=== PATIENT | male | born 1965 | race Caucasian/White ===

== ENCOUNTER 2020-10-31 10:06 | Observation (INO) ==
[2020-10-31 10:37] LABS: Basophils % 0.5 %; Eosinophils # 0.1 K/mcL (0.0-0.6); Eosinophils % 1.7 %; Hematocrit 49.5 % (37.5-50.1); Hemoglobin 15.3 g/dL (12.9-16.9); Immature Granulocytes % 0.1 % (0-4); Lymphocytes # 2.2 K/mcL (0.6-4.6); Lymphocytes % 27.8 %; Mean Corpuscular HGB Conc 30.9 g/dL (31.6-35.5); Mean Corpuscular Hemoglobin 31.5 pg (28.0-33.3); Mean Corpuscular Volume 102.1 fL (83.0-100.0); Mean Platelet Volume 9.8 fL (9.4-12.4); Monocytes # 0.7 K/mcL (0.0-1.3); Monocytes % 8.7 %; Neutrophils # 4.8 K/mcL (1.6-8.9); Platelet Count 180 K/mcL (140-400); Red Blood Count 4.85 M/mcL (4.19-5.50); Red Cell Distribution Width 13.9 % (11.5-14.5); Segmented Neutrophils % 61.2 %; White Blood Count 7.9 K/mcL (4.3-11.1)
[2020-10-31 10:54] LABS: BUN/Creatinine Ratio 37 (6-26); Blood Urea Nitrogen 123 mg/dL (6-20); Calcium 10.5 mg/dL (8.6-10.3); Carbon Dioxide 35 mEq/L (23-29); Chloride 96 mEq/L (98-107); Glucose 105 mg/dL (70-105); Osmolality,Calculated 334 (280-300); Potassium 4.3 mEq/L (3.5-5.1); Sodium 142 mEq/L (136-145); eGFR For African Americans 23 (> 60); eGFR For Non-African Americans 19 (> 60)
[2020-10-31 11:18] LABS: Troponin I < 0.03 ng/mL (< 0.04)
[2020-10-31] MEDS ORDERED: Ondansetron 4 MG/2 ML VIAL IVP PRN (13:55)
[2020-10-31] MEDS ORDERED: Naloxone 0.4 MG/ML INJ IVP PRN (13:55)
[2020-10-31] MEDS ORDERED: D5% in Water 1,000 ML IVC PRN (13:57)
[2020-10-31] MEDS ORDERED: Dextrose Gel 15 GM/37.5 ML TUBE PO PRN ×2 (13:57)
[2020-10-31] MEDS ORDERED: *HR* Dextrose 50 % in Water (Vial) 50 ML VIAL IVP PRN (13:57)
[2020-10-31] MEDS ORDERED: Perflutren Lipid Microsphere 1.3 ML in 0.9 % Sodium Chloride 8.7 ML IVP PRN (14:00)
[2020-10-31] MEDS ORDERED: Furosemide 40 MG/4 ML VIAL IVP SCH (15:45)
[2020-10-31] MEDS: Insulin LISPRO 300 UNITS/3 ML VIAL SUBQ SCH (17:22)
[2020-10-31] MEDS: Albumin 25% 25gram/100mL 25 GM/100 ML IV.SOLN IVPB SCH ×2 (17:46→23:45)
[2020-10-31] MEDS: *HR* Heparin 5,000 UNIT/ML VIAL SQ SCH (17:47)
[2020-10-31 17:54] LABS: Estimated Average Glucose 154 mg/dl
[2020-10-31] MEDS ORDERED: Insulin LISPRO 300 UNITS/3 ML VIAL SUBQ SCH (21:00)
[2020-10-31] MEDS ORDERED: Bismuth Subsalicylate 120 ML ORAL SUSPENSION PO ONE (23:06)
[2020-11-01] MEDS: *HR* Heparin 5,000 UNIT/ML VIAL SQ SCH (05:34)
[2020-11-01 06:55] VITALS: BP 146/81
[2020-11-01 08:11] LABS: Basophils % 0.4 %; Eosinophils # 0.1 K/mcL (0.0-0.6); Eosinophils % 2.4 %; Hematocrit 43.7 % (37.5-50.1); Immature Granulocytes % 0.2 % (0-4); Lymphocytes # 1.5 K/mcL (0.6-4.6); Lymphocytes % 28.9 %; Mean Corpuscular HGB Conc 30.4 g/dL (31.6-35.5); Mean Corpuscular Hemoglobin 30.6 pg (28.0-33.3); Mean Corpuscular Volume 100.7 fL (83.0-100.0); Mean Platelet Volume 9.5 fL (9.4-12.4); Monocytes # 0.6 K/mcL (0.0-1.3); Monocytes % 12.7 %; Neutrophils # 2.8 K/mcL (1.6-8.9); Platelet Count 134 K/mcL (140-400); Red Blood Count 4.34 M/mcL (4.19-5.50); Red Cell Distribution Width 13.8 % (11.5-14.5); Segmented Neutrophils % 55.4 %; White Blood Count 5.1 K/mcL (4.3-11.1)
[2020-11-01 08:14] LABS: Hemoglobin 13.3 g/dL (12.9-16.9)
[2020-11-01 08:27] LABS: Calcium 10.4 mg/dL (8.6-10.3); Magnesium 2.1 mg/dL (1.6-2.6); Phosphorous 4.6 mg/dL (2.7-4.5); Potassium 3.9 mEq/L (3.5-5.1)
[2020-11-01] MEDS ORDERED: Aspirin Enteric Coated 81 MG Tablet PO SCH (09:00)
[2020-11-01] MEDS: Insulin LISPRO 300 UNITS/3 ML VIAL SUBQ SCH ×2 (09:12→12:43)
[2020-11-01] MEDS ORDERED: *HR* OxyCODONE/APAP 10/325 TABLET PO PRN (09:18)
[2020-11-01] MEDS: Albumin 25% 25gram/100mL 25 GM/100 ML IV.SOLN IVPB SCH (09:21)
[2020-11-01] MEDS ORDERED: Furosemide 40 MG/4 ML VIAL IVP SCH (09:30)
== END 2020-11-01 13:30 | disposition home or self-care (01) ==
LOC: 3ANU 10:06 → EMEROOARM 10:06 → 3ANU 14:57
PROVIDERS: ADMIT Internal Medicine; ATTEND Internal Medicine

== ENCOUNTER 2020-12-15 13:27 | Inpatient (IN) ==
[2020-12-15] MEDS ORDERED: Naloxone 0.4 MG/ML INJ IVP PRN (16:35)
[2020-12-15] MEDS ORDERED: Ondansetron ODT 4 MG TAB.RAPDIS SL PRN (16:52)
[2020-12-15] MEDS: Pantoprazole 40 MG VIAL IVP SCH (17:27)
[2020-12-15] MEDS: 0.9 % Sodium Chloride 1,000 ML IVC SCH (17:37)
[2020-12-16] MEDS: Pantoprazole 40 MG VIAL IVP SCH ×2 (05:43→18:37)
[2020-12-16 06:10] LABS: INR 2.4; Prothrombin Time 26.6 Seconds (9.4-12.1)
[2020-12-16 06:12] LABS: Basophils % 0.2 %; Eosinophils % 0.3 %; Hematocrit 41.5 % (37.5-50.1); Hemoglobin 12.9 g/dL (12.9-16.9); Immature Granulocytes % 0.6 % (0-4); Lymphocytes # 0.9 K/mcL (0.6-4.6); Lymphocytes % 9.2 %; Mean Corpuscular HGB Conc 31.1 g/dL (31.6-35.5); Mean Corpuscular Hemoglobin 31.5 pg (28.0-33.3); Mean Corpuscular Volume 101.2 fL (83.0-100.0); Mean Platelet Volume 9.8 fL (9.4-12.4); Monocytes # 1.6 K/mcL (0.0-1.3); Monocytes % 15.7 %; Neutrophils # 7.3 K/mcL (1.6-8.9); Platelet Count 215 K/mcL (140-400); Red Cell Distribution Width 14.7 % (11.5-14.5); White Blood Count 9.9 K/mcL (4.3-11.1)
[2020-12-16 06:26] LABS: Albumin 3.6 g/dL (3.5-5.7); Bilirubin,Total 1.2 mg/dL (0.3-1.0); Calcium 9.8 mg/dL (8.6-10.3); Globulin 3.5 g/dL (2.4-3.5); Magnesium 1.8 mg/dL (1.6-2.6); Phosphorous 2.6 mg/dL (2.7-4.5); Total Protein 7.1 g/dL (6.4-8.9)
[2020-12-16] MEDS ORDERED: 0.9 % Sodium Chloride 1,000 ML IVC SCH (08:45)
[2020-12-16] MEDS: Metoprolol XL (24 HR) Succ 25 MG TAB.ER.24H PO SCH ×2 (10:18→20:05)
[2020-12-16] MEDS ORDERED: Fluticasone Propionate Nasal 50 MCG/SPRAY BOTTLE NS PRN (12:44)
[2020-12-16] MEDS ORDERED: Nystatin Cream 15 GM TUBE TP PRN (12:44)
[2020-12-16] MEDS ORDERED: D5% in Water 1,000 ML IVC PRN (15:32)
[2020-12-16] MEDS ORDERED: *HR* Dextrose 50 % in Water (Vial) 50 ML VIAL IVP PRN (15:32)
[2020-12-16] MEDS ORDERED: Dextrose Gel 15 GM/37.5 ML TUBE PO PRN ×2 (15:32)
[2020-12-16] MEDS ORDERED: 0.9 % Sodium Chloride 250 ML IVC ONE (15:53)
[2020-12-16] MEDS ORDERED: Acetaminophen 325 MG TABLET PO ONE (15:55)
[2020-12-16] MEDS: Insulin LISPRO 300 UNITS/3 ML VIAL SUBQ SCH (16:38)
[2020-12-16] MEDS ORDERED: Warfarin perPT PO PRN (18:00)
[2020-12-16] MEDS: Latanoprost 2.5 ML BOTTLE BOTH EYES SCH (20:12)
[2020-12-17] MEDS: Pantoprazole 40 MG VIAL IVP SCH (05:58)
[2020-12-17 05:59] LABS: Basophils % 0.3 %; Eosinophils # 0.1 K/mcL (0.0-0.6); Eosinophils % 0.8 %; Hematocrit 38.7 % (37.5-50.1); Hemoglobin 12.1 g/dL (12.9-16.9); Immature Granulocytes % 0.3 % (0-4); Lymphocytes # 0.8 K/mcL (0.6-4.6); Lymphocytes % 9.2 %; Mean Corpuscular HGB Conc 31.3 g/dL (31.6-35.5); Mean Corpuscular Hemoglobin 31.5 pg (28.0-33.3); Mean Corpuscular Volume 100.8 fL (83.0-100.0); Mean Platelet Volume 9.6 fL (9.4-12.4); Monocytes % 11.3 %; Neutrophils # 6.8 K/mcL (1.6-8.9); Platelet Count 198 K/mcL (140-400); Red Blood Count 3.84 M/mcL (4.19-5.50); Red Cell Distribution Width 14.9 % (11.5-14.5); Segmented Neutrophils % 78.1 %; White Blood Count 8.7 K/mcL (4.3-11.1)
[2020-12-17 06:06] LABS: INR 1.8; Prothrombin Time 20.7 Seconds (9.4-12.1)
[2020-12-17 06:21] LABS: Albumin 3.4 g/dL (3.5-5.7); Albumin/Globulin Ratio 0.9 (1.1-2.2); Calcium 9.3 mg/dL (8.6-10.3); Globulin 3.6 g/dL (2.4-3.5); Potassium 3.8 mEq/L (3.5-5.1)
[2020-12-17] MEDS: 0.9 % Sodium Chloride 1,000 ML IVC SCH (06:49)
[2020-12-17] MEDS: Insulin LISPRO 300 UNITS/3 ML VIAL SUBQ SCH ×3 (07:09→16:33)
[2020-12-17] MEDS: Loratadine 10 MG TABLET PO SCH (07:14)
[2020-12-17] MEDS: Furosemide 40 MG TABLET PO SCH (07:14)
[2020-12-17] MEDS: Metoprolol XL (24 HR) Succ 25 MG TAB.ER.24H PO SCH ×2 (07:14→19:44)
[2020-12-17] MEDS ORDERED: *HR* Succinylcholine 200 MG/10 ML VIAL IVP ONE (07:56)
[2020-12-17] MEDS ORDERED: Lidocaine -MPF 2% 2 ML VIAL ONE ×2 (07:57→08:04)
[2020-12-17] MEDS ORDERED: *HR* Propofol 200 MG/20 ML VIAL IVP ONE (07:59)
[2020-12-17] MEDS ORDERED: Ketamine *HR* 500 MG/10 ML MDV ONE (08:11)
[2020-12-17] MEDS ORDERED: Tetracaine/Benzocaine/Butamben 1 SPRAY AEROSOL MM ONE (08:13)
[2020-12-17] MEDS ORDERED: *HR* Metoprolol 5 MG/5 ML VIAL IVP ONE (08:33)
[2020-12-17] MEDS: Pantoprazole 40 MG in 0.9 % Sodium Chloride Mini Bag 100 ML IVC SCH ×4 (09:21→23:58)
[2020-12-17] MEDS: Sucralfate 1 GM TABLET PO SCH ×3 (12:11→19:52)
[2020-12-17] MEDS: DilTIAZem 50 MG/50 ML IV.SOLN IVC SCH ×2 (13:55→18:57)
[2020-12-17] MEDS ORDERED: *HR* Warfarin 5 MG TABLET PO ONE (18:00)
[2020-12-17] MEDS ORDERED: Warfarin perPT PO PRN (18:00)
[2020-12-17] MEDS: Latanoprost 2.5 ML BOTTLE BOTH EYES SCH (19:52)
[2020-12-18] MEDS: Pantoprazole 40 MG in 0.9 % Sodium Chloride Mini Bag 100 ML IVC SCH (04:49)
[2020-12-18] MEDS: DilTIAZem 50 MG/50 ML IV.SOLN IVC SCH (04:51)
[2020-12-18 06:12] LABS: INR 1.6; Prothrombin Time 18.7 Seconds (9.4-12.1)
[2020-12-18 06:20] LABS: Hematocrit 40.2 % (37.5-50.1); Hemoglobin 12.4 g/dL (12.9-16.9); Mean Corpuscular HGB Conc 30.8 g/dL (31.6-35.5); Mean Corpuscular Hemoglobin 31.5 pg (28.0-33.3); Mean Platelet Volume 9.7 fL (9.4-12.4); Platelet Count 218 K/mcL (140-400); Red Blood Count 3.94 M/mcL (4.19-5.50); Red Cell Distribution Width 14.7 % (11.5-14.5); White Blood Count 7.2 K/mcL (4.3-11.1)
[2020-12-18 07:02] LABS: Albumin 3.4 g/dL (3.5-5.7); Albumin/Globulin Ratio 0.9 (1.1-2.2); Bilirubin,Total 0.9 mg/dL (0.3-1.0); Calcium 9.3 mg/dL (8.6-10.3); Globulin 3.7 g/dL (2.4-3.5); Potassium 3.8 mEq/L (3.5-5.1); Total Protein 7.1 g/dL (6.4-8.9)
[2020-12-18] MEDS: Insulin LISPRO 300 UNITS/3 ML VIAL SUBQ SCH ×3 (07:24→17:02)
[2020-12-18] MEDS: Loratadine 10 MG TABLET PO SCH (07:41)
[2020-12-18] MEDS: Furosemide 40 MG TABLET PO SCH (07:41)
[2020-12-18] MEDS: Sucralfate 1 GM TABLET PO SCH ×4 (07:41→20:09)
[2020-12-18] MEDS: Metoprolol XL (24 HR) Succ 25 MG TAB.ER.24H PO SCH (07:41)
[2020-12-18] MEDS: Pantoprazole 40 MG VIAL IVP SCH (17:02)
[2020-12-18] MEDS ORDERED: *HR* Warfarin 5 MG TABLET PO ONE (18:00)
[2020-12-18] MEDS: Latanoprost 2.5 ML BOTTLE BOTH EYES SCH (20:09)
[2020-12-18] MEDS ORDERED: Saliva Stimulant 44.3ml BOTTLE PO PRN (23:40)
[2020-12-19 01:46] LABS: Hematocrit 39.7 % (37.5-50.1); Hemoglobin 12.4 g/dL (12.9-16.9); Mean Corpuscular HGB Conc 31.2 g/dL (31.6-35.5); Mean Corpuscular Hemoglobin 31.9 pg (28.0-33.3); Mean Corpuscular Volume 102.1 fL (83.0-100.0); Mean Platelet Volume 9.2 fL (9.4-12.4); Platelet Count 220 K/mcL (140-400); Red Blood Count 3.89 M/mcL (4.19-5.50); Red Cell Distribution Width 14.8 % (11.5-14.5); White Blood Count 6.7 K/mcL (4.3-11.1)
[2020-12-19 02:04] LABS: Albumin 3.3 g/dL (3.5-5.7); Albumin/Globulin Ratio 0.9 (1.1-2.2); Bilirubin,Total 0.9 mg/dL (0.3-1.0); Calcium 9.1 mg/dL (8.6-10.3); Globulin 3.7 g/dL (2.4-3.5)
[2020-12-19] MEDS: Pantoprazole 40 MG VIAL IVP SCH ×2 (04:29→17:08)
[2020-12-19] MEDS: Sucralfate 1 GM TABLET PO SCH ×4 (08:40→21:23)
[2020-12-19] MEDS: Loratadine 10 MG TABLET PO SCH (08:41)
[2020-12-19] MEDS: Furosemide 40 MG TABLET PO SCH (08:41)
[2020-12-19] MEDS: Insulin LISPRO 300 UNITS/3 ML VIAL SUBQ SCH ×3 (08:44→15:44)
[2020-12-19 14:03] LABS: Thyroid Stimulating Hormone 1.748 mcIU/mL (0.340-5.600)
[2020-12-19] MEDS ORDERED: *HR* Warfarin 5 MG TABLET PO ONE (18:00)
[2020-12-19] MEDS: Latanoprost 2.5 ML BOTTLE BOTH EYES SCH (21:25)
[2020-12-20] MEDS: Pantoprazole 40 MG VIAL IVP SCH ×2 (04:11→17:29)
[2020-12-20 05:55] LABS: Prothrombin Time 22.2 Seconds (9.4-12.1)
[2020-12-20 06:02] LABS: Albumin 3.3 g/dL (3.5-5.7); Albumin/Globulin Ratio 0.9 (1.1-2.2); Bilirubin,Total 0.7 mg/dL (0.3-1.0); Calcium 9.1 mg/dL (8.6-10.3); Globulin 3.8 g/dL (2.4-3.5); Potassium 4.3 mEq/L (3.5-5.1); Total Protein 7.1 g/dL (6.4-8.9)
[2020-12-20 06:09] LABS: Hematocrit 39.8 % (37.5-50.1); Hemoglobin 12.6 g/dL (12.9-16.9); Mean Corpuscular HGB Conc 31.7 g/dL (31.6-35.5); Mean Corpuscular Hemoglobin 32.5 pg (28.0-33.3); Mean Corpuscular Volume 102.6 fL (83.0-100.0); Mean Platelet Volume 9.9 fL (9.4-12.4); Platelet Count 255 K/mcL (140-400); Red Blood Count 3.88 M/mcL (4.19-5.50); Red Cell Distribution Width 14.8 % (11.5-14.5); White Blood Count 5.9 K/mcL (4.3-11.1)
[2020-12-20] MEDS: Furosemide 40 MG TABLET PO SCH (08:29)
[2020-12-20] MEDS: Loratadine 10 MG TABLET PO SCH (08:30)
[2020-12-20] MEDS: Sucralfate 1 GM TABLET PO SCH ×4 (08:30→23:27)
[2020-12-20] MEDS: Insulin LISPRO 300 UNITS/3 ML VIAL SUBQ SCH ×3 (08:31→16:41)
[2020-12-20] MEDS ORDERED: *HR* Warfarin 5 MG TABLET PO ONE (18:00)
[2020-12-20] MEDS: Latanoprost 2.5 ML BOTTLE BOTH EYES SCH (20:53)
[2020-12-21 02:46] LABS: Hematocrit 40.1 % (37.5-50.1); Hemoglobin 12.4 g/dL (12.9-16.9); Mean Corpuscular HGB Conc 30.9 g/dL (31.6-35.5); Mean Corpuscular Volume 103.6 fL (83.0-100.0); Mean Platelet Volume 10.5 fL (9.4-12.4); Platelet Count 160 K/mcL (140-400); Red Blood Count 3.87 M/mcL (4.19-5.50); Red Cell Distribution Width 14.8 % (11.5-14.5); White Blood Count 6.1 K/mcL (4.3-11.1)
[2020-12-21 02:51] LABS: INR 1.9; Prothrombin Time 21.8 Seconds (9.4-12.1)
[2020-12-21 03:08] LABS: Albumin 3.6 g/dL (3.5-5.7); Albumin/Globulin Ratio 0.9 (1.1-2.2); Bilirubin,Total 0.7 mg/dL (0.3-1.0); Calcium 9.1 mg/dL (8.6-10.3); Globulin 3.8 g/dL (2.4-3.5); Potassium 4.4 mEq/L (3.5-5.1); Total Protein 7.4 g/dL (6.4-8.9)
[2020-12-21] MEDS ORDERED: 0.9 % Sodium Chloride 1,000 ML IVC ONE (05:04)
[2020-12-21] MEDS: Pantoprazole 40 MG VIAL IVP SCH ×2 (05:19→16:06)
[2020-12-21] MEDS: Insulin LISPRO 300 UNITS/3 ML VIAL SUBQ SCH ×3 (07:14→16:07)
[2020-12-21] MEDS: Loratadine 10 MG TABLET PO SCH (07:23)
[2020-12-21] MEDS: Furosemide 40 MG TABLET PO SCH (07:23)
[2020-12-21] MEDS: Sucralfate 1 GM TABLET PO SCH ×4 (07:23→21:26)
[2020-12-21] MEDS ORDERED: *HR* Warfarin 3 MG TABLET PO ONE (18:00)
[2020-12-21] MEDS: Latanoprost 2.5 ML BOTTLE BOTH EYES SCH (21:27)
[2020-12-22 04:13] VITALS: BP 101/70
[2020-12-22] MEDS: Pantoprazole 40 MG VIAL IVP SCH (05:48)
[2020-12-22 06:42] LABS: Hematocrit 40.5 % (37.5-50.1); Hemoglobin 12.6 g/dL (12.9-16.9); Mean Corpuscular HGB Conc 31.1 g/dL (31.6-35.5); Mean Corpuscular Hemoglobin 32.1 pg (28.0-33.3); Mean Corpuscular Volume 103.1 fL (83.0-100.0); Mean Platelet Volume 9.2 fL (9.4-12.4); Platelet Count 238 K/mcL (140-400); Red Blood Count 3.93 M/mcL (4.19-5.50); Red Cell Distribution Width 14.8 % (11.5-14.5)
[2020-12-22 06:44] LABS: INR 1.9; Prothrombin Time 21.9 Seconds (9.4-12.1)
[2020-12-22 07:31] LABS: Albumin 3.3 g/dL (3.5-5.7); Albumin/Globulin Ratio 0.9 (1.1-2.2); Bilirubin,Total 0.7 mg/dL (0.3-1.0); Calcium 8.8 mg/dL (8.6-10.3); Globulin 3.6 g/dL (2.4-3.5); Potassium 4.3 mEq/L (3.5-5.1); Total Protein 6.9 g/dL (6.4-8.9)
[2020-12-22] MEDS: Sucralfate 1 GM TABLET PO SCH ×2 (08:14→12:26)
[2020-12-22] MEDS: Loratadine 10 MG TABLET PO SCH (08:15)
[2020-12-22] MEDS: Furosemide 40 MG TABLET PO SCH (08:15)
[2020-12-22] MEDS: Insulin LISPRO 300 UNITS/3 ML VIAL SUBQ SCH ×2 (08:19→12:26)
[2020-12-22 12:25] LABS: Adenovirus Not Detected (Not Detect); Bordetella Pertussis Not Detected (Not Detect); Chlamydophila pneumoniae Not Detected (Not Detect); Coronavirus 229E Not Detected (Not Detect); Coronavirus HKU1 Not Detected (Not Detect); Coronavirus NL63 Not Detected (Not Detect); Coronavirus OC43 Not Detected (Not Detect); Human Metapneumovirus Not Detected (Not Detect); Human Rhinovirus/Enterovirus Not Detected (Not Detect); Influenza A Subtype 2009 H1 Not Detected (Not Detect); Influenza B Not Detected (Not Detect); Mycoplasma pneumoniae Not Detected (Not Detect); Parainfluenza Virus 1 Not Detected (Not Detect); Parainfluenza Virus 2 Not Detected (Not Detect); Parainfluenza Virus 3 Not Detected (Not Detect); Parainfluenza Virus 4 Not Detected (Not Detect); Respiratory Syncytial Virus Not Detected (Not Detect); SARS-CoV-2 Not Detected (Not Detect)
[2020-12-22] MEDS ORDERED: *HR* Warfarin 3 MG TABLET PO ONE (18:00)
== END 2020-12-22 14:55 | disposition other institution (70) | DRG 384 ==
LOC: 3BNU → SUATTDRO 15:15
PROVIDERS: ADMIT Internal Medicine; ATTEND Registered Nurse
PROC: ENDOEBX (2020-12-17 08:45)

== ENCOUNTER 2021-01-19 11:56 | Inpatient (IN) ==
[2021-01-19] MEDS ORDERED: DilTIAZem 50 MG/50 ML IV.SOLN IVC SCH ×2 (12:30→12:45)
[2021-01-19 13:10] LABS: Basophils % 0.4 %; Eosinophils # 0.1 K/mcL (0.0-0.6); Eosinophils % 1.3 %; Hematocrit 44.4 % (37.5-50.1); Hemoglobin 13.5 g/dL (12.9-16.9); Immature Granulocytes % 0.1 % (0-4); Lymphocytes # 1.8 K/mcL (0.6-4.6); Lymphocytes % 23.6 %; Mean Corpuscular HGB Conc 30.4 g/dL (31.6-35.5); Mean Corpuscular Hemoglobin 31.5 pg (28.0-33.3); Mean Corpuscular Volume 103.5 fL (83.0-100.0); Mean Platelet Volume 9.3 fL (9.4-12.4); Monocytes # 0.8 K/mcL (0.0-1.3); Monocytes % 10.8 %; Neutrophils # 4.9 K/mcL (1.6-8.9); Platelet Count 255 K/mcL (140-400); Red Blood Count 4.29 M/mcL (4.19-5.50); Red Cell Distribution Width 15.2 % (11.5-14.5); Segmented Neutrophils % 63.8 %; White Blood Count 7.7 K/mcL (4.3-11.1)
[2021-01-19 13:18] LABS: Activated Partial Thrombo Time 44.7 Seconds (26.0-36.0)
[2021-01-19 13:21] LABS: BUN/Creatinine Ratio 14 (6-26); Blood Urea Nitrogen 21 mg/dL (6-20); Calcium 9.7 mg/dL (8.6-10.3); Carbon Dioxide 35 mEq/L (23-29); Chloride 98 mEq/L (98-107); Glucose 116 mg/dL (70-105); Magnesium 1.8 mg/dL (1.6-2.6); Osmolality,Calculated 296 (280-300); Potassium 3.8 mEq/L (3.5-5.1); Sodium 141 mEq/L (136-145); Troponin I < 0.03 ng/mL (< 0.04); eGFR For African Americans > 60 (> 60); eGFR For Non-African Americans 50 (> 60)
[2021-01-19 13:42] LABS: INR 4.5
[2021-01-19] MEDS ORDERED: Furosemide 40 MG/4 ML VIAL IVP ONE (13:50)
[2021-01-19] MEDS ORDERED: Ondansetron 4 MG/2 ML VIAL IVP PRN (14:24)
[2021-01-19] MEDS ORDERED: Naloxone 0.4 MG/ML INJ IVP PRN (14:24)
[2021-01-19] MEDS ORDERED: Dextrose Gel 15 GM/37.5 ML TUBE PO PRN ×2 (14:31)
[2021-01-19] MEDS ORDERED: D5% in Water 1,000 ML IVC PRN (14:31)
[2021-01-19] MEDS ORDERED: *HR* Dextrose 50 % in Water (Vial) 50 ML VIAL IVP PRN (14:31)
[2021-01-19] MEDS ORDERED: Nitroglycerin 0.4 MG TAB.SUBL SL PRN (14:54)
[2021-01-19] MEDS: DilTIAZem CD (24hr) 240 MG CAP.ER.24H PO SCH (17:25)
[2021-01-19] MEDS: Sucralfate 1 GM TABLET PO SCH ×2 (17:25→21:13)
[2021-01-19] MEDS: Insulin LISPRO 300 UNITS/3 ML VIAL SUBQ SCH (17:25)
[2021-01-19 19:52] LABS: Bilirubin,Urine Negative (Negative); Blood,Urine Negative (Negative); Clarity,Urine Clear (Clear); Color,Urine Yellow (Yellow); Glucose,Urine (UA) Normal (Normal); Hyaline Casts,Urine Moderate per lpf (None Seen); Ketones,Urine Negative (Negative); Leukocyte Esterase,Urine Trace (Negative); Mucus,Urine Few per lpf (None-Few); Nitrite,Urine Negative (Negative); PH,Urine 5.5 pH Units (5.0-8.0); Protein,Urine Negative (Neg-Trace); Specific Gravity,Urine 1.015 (1.010-1.025); Squamous Epithelial Cell,Urine Few per hpf (None-Few); Urobilinogen,Urine Normal (Normal)
[2021-01-19] MEDS ORDERED: Furosemide 20 MG/2 ML VIAL IVP SCH (21:00)
[2021-01-19] MEDS: *HR* OxyCODONE/APAP 10/325 TABLET PO PRN (22:41)
[2021-01-20 00:32] LABS: Basophils % 0.5 %; Eosinophils # 0.1 K/mcL (0.0-0.6); Eosinophils % 1.2 %; Hematocrit 40.5 % (37.5-50.1); Hemoglobin 12.3 g/dL (12.9-16.9); Immature Granulocytes % 0.3 % (0-4); Lymphocytes # 1.7 K/mcL (0.6-4.6); Lymphocytes % 19.3 %; Mean Corpuscular HGB Conc 30.4 g/dL (31.6-35.5); Mean Corpuscular Hemoglobin 30.9 pg (28.0-33.3); Mean Corpuscular Volume 101.8 fL (83.0-100.0); Mean Platelet Volume 8.9 fL (9.4-12.4); Monocytes % 11.2 %; Neutrophils # 5.8 K/mcL (1.6-8.9); Platelet Count 237 K/mcL (140-400); Red Blood Count 3.98 M/mcL (4.19-5.50); Red Cell Distribution Width 15.1 % (11.5-14.5); Segmented Neutrophils % 67.5 %; White Blood Count 8.7 K/mcL (4.3-11.1)
[2021-01-20 00:44] LABS: Activated Partial Thrombo Time 44.8 Seconds (26.0-36.0)
[2021-01-20 00:52] LABS: BUN/Creatinine Ratio 17 (6-26); Blood Urea Nitrogen 22 mg/dL (6-20); Calcium 9.2 mg/dL (8.6-10.3); Carbon Dioxide 35 mEq/L (23-29); Chloride 99 mEq/L (98-107); Glucose 101 mg/dL (70-105); Magnesium 1.9 mg/dL (1.6-2.6); Osmolality,Calculated 293 (280-300); Phosphorous 2.7 mg/dL (2.7-4.5); Potassium 3.8 mEq/L (3.5-5.1); Sodium 140 mEq/L (136-145); eGFR For African Americans > 60 (> 60); eGFR For Non-African Americans 56 (> 60)
[2021-01-20 00:53] LABS: INR 4.8; Prothrombin Time 53.4 Seconds (9.4-12.1)
[2021-01-20] MEDS: *HR* OxyCODONE/APAP 10/325 TABLET PO PRN ×2 (05:59→21:33)
[2021-01-20] MEDS ORDERED: Nystatin Cream 15 GM TUBE TP PRN (07:18)
[2021-01-20] MEDS ORDERED: Fluticasone Propionate Nasal 50 MCG/SPRAY BOTTLE NS PRN (07:18)
[2021-01-20] MEDS ORDERED: OLOPATADINE HCL OP PRN (07:18)
[2021-01-20] MEDS: Sucralfate 1 GM TABLET PO SCH ×4 (07:50→21:34)
[2021-01-20] MEDS: Loratadine 10 MG TABLET PO SCH (07:50)
[2021-01-20] MEDS: Insulin LISPRO 300 UNITS/3 ML VIAL SUBQ SCH ×3 (07:51→16:11)
[2021-01-20] MEDS: Furosemide 40 MG/4 ML VIAL IVP SCH ×2 (07:51→21:33)
[2021-01-20] MEDS: DilTIAZem CD (24hr) 240 MG CAP.ER.24H PO SCH (07:51)
[2021-01-20] MEDS: allopurinoL 100 MG TABLET PO SCH (07:51)
[2021-01-20] MEDS: Aspirin Enteric Coated 81 MG Tablet PO SCH (07:51)
[2021-01-20] MEDS ORDERED: Gabapentin 300 MG CAPSULE PO SCH (10:45)
[2021-01-20] MEDS ORDERED: Gabapentin 300 MG CAPSULE PO PRN (14:41)
[2021-01-20 16:29] LABS: ABG Base Excess 10 mEq/L (-2 to 3); ABG HCO3 39 mEq/L (21-27); ABG Oxygen Saturation 96 % (95-98); ABG PCO2 74 mmHg (35-45); ABG PH 7.33 pH Units (7.32-7.45); ABG PO2 91 mmHg (85-104); ABG TCO2 41 mEq/L (20-26)
[2021-01-20] MEDS: Metoprolol XL (24 HR) Succ 25 MG TAB.ER.24H PO SCH (21:34)
[2021-01-20] MEDS: Latanoprost 2.5 ML BOTTLE BOTH EYES SCH (21:40)
[2021-01-21 03:18] LABS: INR 3.4; Prothrombin Time 38.3 Seconds (9.4-12.1)
[2021-01-21 03:24] LABS: BUN/Creatinine Ratio 17 (6-26); Blood Urea Nitrogen 22 mg/dL (6-20); Calcium 9.3 mg/dL (8.6-10.3); Carbon Dioxide 36 mEq/L (23-29); Chloride 100 mEq/L (98-107); Glucose 105 mg/dL (70-105); Magnesium 1.7 mg/dL (1.6-2.6); Osmolality,Calculated 298 (280-300); Phosphorous 2.5 mg/dL (2.7-4.5); Potassium 3.7 mEq/L (3.5-5.1); Sodium 142 mEq/L (136-145); eGFR For African Americans > 60 (> 60); eGFR For Non-African Americans 56 (> 60)
[2021-01-21] MEDS: Insulin LISPRO 300 UNITS/3 ML VIAL SUBQ SCH ×3 (07:21→16:38)
[2021-01-21] MEDS: Furosemide 40 MG/4 ML VIAL IVP SCH ×2 (07:29→20:07)
[2021-01-21] MEDS: Loratadine 10 MG TABLET PO SCH (07:29)
[2021-01-21] MEDS: Sucralfate 1 GM TABLET PO SCH ×4 (07:29→20:06)
[2021-01-21] MEDS: DilTIAZem CD (24hr) 240 MG CAP.ER.24H PO SCH (07:30)
[2021-01-21] MEDS: allopurinoL 100 MG TABLET PO SCH (07:30)
[2021-01-21] MEDS: Aspirin Enteric Coated 81 MG Tablet PO SCH (07:30)
[2021-01-21] MEDS: Metoprolol XL (24 HR) Succ 25 MG TAB.ER.24H PO SCH ×2 (07:30→20:07)
[2021-01-21] MEDS: *HR* OxyCODONE/APAP 10/325 TABLET PO PRN ×2 (11:51→20:07)
[2021-01-21 13:56] LABS: VBG HCO3 41 mEq/L (21-27); VBG PCO2 78 mmHg (41-51); VBG PH 7.33 pH Units (7.32-7.42); VBG PO2 50 mmHg (25-50)
[2021-01-21] MEDS: Latanoprost 2.5 ML BOTTLE BOTH EYES SCH (20:10)
[2021-01-22 02:22] LABS: Hematocrit 38.6 % (37.5-50.1); Hemoglobin 11.7 g/dL (12.9-16.9); Mean Corpuscular HGB Conc 30.3 g/dL (31.6-35.5); Mean Corpuscular Hemoglobin 31.2 pg (28.0-33.3); Mean Corpuscular Volume 102.9 fL (83.0-100.0); Mean Platelet Volume 8.9 fL (9.4-12.4); Platelet Count 204 K/mcL (140-400); Red Blood Count 3.75 M/mcL (4.19-5.50); Red Cell Distribution Width 14.8 % (11.5-14.5); White Blood Count 7.1 K/mcL (4.3-11.1)
[2021-01-22 02:40] LABS: BUN/Creatinine Ratio 18 (6-26); Blood Urea Nitrogen 22 mg/dL (6-20); Calcium 9.1 mg/dL (8.6-10.3); Carbon Dioxide 39 mEq/L (23-29); Chloride 100 mEq/L (98-107); Glucose 116 mg/dL (70-105); Magnesium 1.7 mg/dL (1.6-2.6); Osmolality,Calculated 300 (280-300); Potassium 3.5 mEq/L (3.5-5.1); Sodium 143 mEq/L (136-145); eGFR For African Americans > 60 (> 60); eGFR For Non-African Americans 60 (> 60)
[2021-01-22] MEDS ORDERED: Saliva Stimulant 44.3ml BOTTLE PO PRN (03:21)
[2021-01-22] MEDS: *HR* OxyCODONE/APAP 10/325 TABLET PO PRN (06:25)
[2021-01-22] MEDS: Insulin LISPRO 300 UNITS/3 ML VIAL SUBQ SCH ×3 (08:50→16:45)
[2021-01-22] MEDS: DilTIAZem CD (24hr) 240 MG CAP.ER.24H PO SCH (09:05)
[2021-01-22] MEDS: Sucralfate 1 GM TABLET PO SCH ×4 (09:05→21:53)
[2021-01-22] MEDS: Furosemide 40 MG/4 ML VIAL IVP SCH ×2 (09:06→21:54)
[2021-01-22] MEDS: Loratadine 10 MG TABLET PO SCH (09:06)
[2021-01-22] MEDS: Aspirin Enteric Coated 81 MG Tablet PO SCH (09:06)
[2021-01-22] MEDS: allopurinoL 100 MG TABLET PO SCH (09:08)
[2021-01-22] MEDS: Metoprolol XL (24 HR) Succ 25 MG TAB.ER.24H PO SCH ×2 (09:09→21:54)
[2021-01-22] MEDS ORDERED: Albumin 25% 25gram/100mL 25 GM/100 ML IV.SOLN IVPB SCH (13:30)
[2021-01-22 15:17] LABS: INR 1.9; Prothrombin Time 21.8 Seconds (9.4-12.1)
[2021-01-22] MEDS ORDERED: Ipratropium/Albuterol Neb 3 ML IH PRN (17:37)
[2021-01-22] MEDS ORDERED: Warfarin perPT PO PRN (18:00)
[2021-01-22] MEDS ORDERED: *HR* Warfarin 7.5 MG TABLET PO ONE (18:00)
[2021-01-22] MEDS: Albumin 25% 25gram/100mL 25 GM/100 ML IV.SOLN IVPB SCH (18:44)
[2021-01-22] MEDS: Acetaminophen 325 MG TABLET PO PRN (18:44)
[2021-01-22] MEDS: Latanoprost 2.5 ML BOTTLE BOTH EYES SCH (21:55)
[2021-01-23] MEDS: Albumin 25% 25gram/100mL 25 GM/100 ML IV.SOLN IVPB SCH ×2 (05:54→18:23)
[2021-01-23 06:18] LABS: Hematocrit 39.5 % (37.5-50.1); Hemoglobin 11.9 g/dL (12.9-16.9); Mean Corpuscular HGB Conc 30.1 g/dL (31.6-35.5); Mean Corpuscular Hemoglobin 31.4 pg (28.0-33.3); Mean Corpuscular Volume 104.2 fL (83.0-100.0); Mean Platelet Volume 9.4 fL (9.4-12.4); Platelet Count 217 K/mcL (140-400); Red Blood Count 3.79 M/mcL (4.19-5.50); Red Cell Distribution Width 15.1 % (11.5-14.5); White Blood Count 6.5 K/mcL (4.3-11.1)
[2021-01-23 06:24] LABS: INR 1.9; Prothrombin Time 21.1 Seconds (9.4-12.1)
[2021-01-23 06:46] LABS: BUN/Creatinine Ratio 18 (6-26); Blood Urea Nitrogen 23 mg/dL (6-20); Calcium 9.4 mg/dL (8.6-10.3); Carbon Dioxide 41 mEq/L (23-29); Chloride 98 mEq/L (98-107); Glucose 106 mg/dL (70-105); Magnesium 1.7 mg/dL (1.6-2.6); Osmolality,Calculated 300 (280-300); Potassium 3.6 mEq/L (3.5-5.1); Sodium 143 mEq/L (136-145); eGFR For African Americans > 60 (> 60); eGFR For Non-African Americans 60 (> 60)
[2021-01-23] MEDS: Insulin LISPRO 300 UNITS/3 ML VIAL SUBQ SCH ×3 (07:44→16:54)
[2021-01-23] MEDS: Metoprolol XL (24 HR) Succ 25 MG TAB.ER.24H PO SCH ×2 (09:17→21:49)
[2021-01-23] MEDS: DilTIAZem CD (24hr) 240 MG CAP.ER.24H PO SCH (09:17)
[2021-01-23] MEDS: Aspirin Enteric Coated 81 MG Tablet PO SCH (09:17)
[2021-01-23] MEDS: Sucralfate 1 GM TABLET PO SCH ×4 (09:17→21:49)
[2021-01-23] MEDS: Furosemide 40 MG/4 ML VIAL IVP SCH ×2 (09:18→21:48)
[2021-01-23] MEDS: allopurinoL 100 MG TABLET PO SCH (09:18)
[2021-01-23] MEDS: Loratadine 10 MG TABLET PO SCH (09:18)
[2021-01-23] MEDS ORDERED: *HR* Warfarin 5 MG TABLET PO ONE (18:00)
[2021-01-23] MEDS: Latanoprost 2.5 ML BOTTLE BOTH EYES SCH (21:49)
[2021-01-23] MEDS: *HR* OxyCODONE/APAP 10/325 TABLET PO PRN (22:04)
[2021-01-24 01:36] LABS: INR 1.9; Prothrombin Time 21.9 Seconds (9.4-12.1)
[2021-01-24] MEDS: Albumin 25% 25gram/100mL 25 GM/100 ML IV.SOLN IVPB SCH ×2 (05:58→18:13)
[2021-01-24] MEDS: Insulin LISPRO 300 UNITS/3 ML VIAL SUBQ SCH ×3 (07:27→16:46)
[2021-01-24] MEDS: allopurinoL 100 MG TABLET PO SCH (08:09)
[2021-01-24] MEDS: Metoprolol XL (24 HR) Succ 25 MG TAB.ER.24H PO SCH ×2 (08:09→21:09)
[2021-01-24] MEDS: DilTIAZem CD (24hr) 240 MG CAP.ER.24H PO SCH (08:09)
[2021-01-24] MEDS: Loratadine 10 MG TABLET PO SCH (08:09)
[2021-01-24] MEDS: Sucralfate 1 GM TABLET PO SCH ×4 (08:09→21:09)
[2021-01-24] MEDS: Aspirin Enteric Coated 81 MG Tablet PO SCH (08:10)
[2021-01-24] MEDS: Furosemide 40 MG/4 ML VIAL IVP SCH (08:10)
[2021-01-24 09:24] LABS: Hematocrit 38.6 % (37.5-50.1); Hemoglobin 11.5 g/dL (12.9-16.9); Mean Corpuscular HGB Conc 29.8 g/dL (31.6-35.5); Mean Corpuscular Hemoglobin 31.3 pg (28.0-33.3); Mean Corpuscular Volume 105.2 fL (83.0-100.0); Mean Platelet Volume 9.3 fL (9.4-12.4); Platelet Count 195 K/mcL (140-400); Red Blood Count 3.67 M/mcL (4.19-5.50); Red Cell Distribution Width 14.7 % (11.5-14.5); White Blood Count 6.1 K/mcL (4.3-11.1)
[2021-01-24 09:58] LABS: BUN/Creatinine Ratio 19 (6-26); Blood Urea Nitrogen 22 mg/dL (6-20); Calcium 9.6 mg/dL (8.6-10.3); Carbon Dioxide 40 mEq/L (23-29); Chloride 100 mEq/L (98-107); Glucose 125 mg/dL (70-105); Magnesium 1.7 mg/dL (1.6-2.6); Osmolality,Calculated 303 (280-300); Potassium 3.6 mEq/L (3.5-5.1); Sodium 144 mEq/L (136-145); eGFR For African Americans > 60 (> 60); eGFR For Non-African Americans > 60 (> 60)
[2021-01-24 17:43] LABS: Adenovirus Not Detected (Not Detect); Bordetella Pertussis Not Detected (Not Detect); Chlamydophila pneumoniae Not Detected (Not Detect); Coronavirus 229E Not Detected (Not Detect); Coronavirus HKU1 Not Detected (Not Detect); Coronavirus NL63 Not Detected (Not Detect); Coronavirus OC43 Not Detected (Not Detect); Human Metapneumovirus Not Detected (Not Detect); Human Rhinovirus/Enterovirus Not Detected (Not Detect); Influenza A Subtype 2009 H1 Not Detected (Not Detect); Influenza B Not Detected (Not Detect); Mycoplasma pneumoniae Not Detected (Not Detect); Parainfluenza Virus 1 Not Detected (Not Detect); Parainfluenza Virus 2 Not Detected (Not Detect); Parainfluenza Virus 3 Not Detected (Not Detect); Parainfluenza Virus 4 Not Detected (Not Detect); Respiratory Syncytial Virus Not Detected (Not Detect); SARS-CoV-2 Not Detected (Not Detect)
[2021-01-24] MEDS ORDERED: *HR* Warfarin 7.5 MG TABLET PO ONE (18:00)
[2021-01-24] MEDS ORDERED: Furosemide 40 MG/4 ML VIAL IVP ONE (18:01)
[2021-01-24] MEDS: acetaZOLAMIDE 250 MG TABLET PO SCH (18:32)
[2021-01-24] MEDS: metOLazone 5 MG TABLET PO SCH (18:32)
[2021-01-24] MEDS: Furosemide 20 MG/2 ML VIAL IVP SCH (21:09)
[2021-01-24] MEDS: Latanoprost 2.5 ML BOTTLE BOTH EYES SCH (21:10)
[2021-01-25 03:11] LABS: Hematocrit 35.4 % (37.5-50.1); Hemoglobin 10.9 g/dL (12.9-16.9); Mean Corpuscular HGB Conc 30.8 g/dL (31.6-35.5); Mean Corpuscular Volume 103.8 fL (83.0-100.0); Mean Platelet Volume 9.2 fL (9.4-12.4); Platelet Count 196 K/mcL (140-400); Red Blood Count 3.41 M/mcL (4.19-5.50); Red Cell Distribution Width 14.6 % (11.5-14.5); White Blood Count 6.6 K/mcL (4.3-11.1)
[2021-01-25 03:26] LABS: INR 1.9; Prothrombin Time 21.9 Seconds (9.4-12.1)
[2021-01-25 03:33] LABS: Alanine Aminotransferase 12 Units/L (7-52); Albumin 3.8 g/dL (3.5-5.7); Albumin/Globulin Ratio 1.3 (1.1-2.2); Alkaline Phosphatase 88 Units/L (34-104); BUN/Creatinine Ratio 18 (6-26); Bilirubin,Total 1.6 mg/dL (0.3-1.0); Blood Urea Nitrogen 21 mg/dL (6-20); Calcium 9.6 mg/dL (8.6-10.3); Carbon Dioxide 42 mEq/L (23-29); Chloride 97 mEq/L (98-107); Glucose 104 mg/dL (70-105); Magnesium 1.8 mg/dL (1.6-2.6); Osmolality,Calculated 303 (280-300); Potassium 3.5 mEq/L (3.5-5.1); Sodium 145 mEq/L (136-145); Total Protein 6.8 g/dL (6.4-8.9); eGFR For African Americans > 60 (> 60); eGFR For Non-African Americans > 60 (> 60)
[2021-01-25 03:56] LABS: Aspartate Amino Transferase 13 Units/L (13-39)
[2021-01-25] MEDS: Albumin 25% 25gram/100mL 25 GM/100 ML IV.SOLN IVPB SCH ×2 (06:56→18:18)
[2021-01-25] MEDS: Sucralfate 1 GM TABLET PO SCH ×4 (06:56→21:29)
[2021-01-25] MEDS: Insulin LISPRO 300 UNITS/3 ML VIAL SUBQ SCH ×3 (07:01→16:26)
[2021-01-25] MEDS: Furosemide 20 MG/2 ML VIAL IVP SCH ×2 (08:05→21:30)
[2021-01-25] MEDS: allopurinoL 100 MG TABLET PO SCH (08:05)
[2021-01-25] MEDS: Metoprolol XL (24 HR) Succ 25 MG TAB.ER.24H PO SCH ×2 (08:05→21:29)
[2021-01-25] MEDS: acetaZOLAMIDE 250 MG TABLET PO SCH ×2 (08:05→21:29)
[2021-01-25] MEDS: DilTIAZem CD (24hr) 240 MG CAP.ER.24H PO SCH (08:06)
[2021-01-25] MEDS: metOLazone 5 MG TABLET PO SCH (08:06)
[2021-01-25] MEDS: Aspirin Enteric Coated 81 MG Tablet PO SCH (08:06)
[2021-01-25] MEDS: Loratadine 10 MG TABLET PO SCH (08:06)
[2021-01-25 16:41] LABS: Bilirubin,Urine Negative (Negative); Blood,Urine Negative (Negative); Clarity,Urine Clear (Clear); Color,Urine Light-Yellow (Yellow); Glucose,Urine (UA) Normal (Normal); Ketones,Urine Negative (Negative); Leukocyte Esterase,Urine Negative (Negative); Nitrite,Urine Negative (Negative); PH,Urine 8.5 pH Units (5.0-8.0); Protein,Urine Trace mg/dL (Neg-Trace); Specific Gravity,Urine 1.015 (1.010-1.025); Urobilinogen,Urine >=8.0 mg/dL (Normal)
[2021-01-25] MEDS ORDERED: *HR* Warfarin 4 MG TABLET PO ONE (18:00)
[2021-01-25] MEDS: Latanoprost 2.5 ML BOTTLE BOTH EYES SCH (21:30)
[2021-01-25] MEDS: *HR* OxyCODONE/APAP 10/325 TABLET PO PRN (21:48)
[2021-01-26 04:55] LABS: Basophils % 0.3 %; Eosinophils # 0.2 K/mcL (0.0-0.6); Eosinophils % 2.5 %; Hematocrit 36.2 % (37.5-50.1); Immature Granulocytes % 0.2 % (0-4); Lymphocytes # 1.4 K/mcL (0.6-4.6); Lymphocytes % 23.7 %; Mean Corpuscular HGB Conc 30.4 g/dL (31.6-35.5); Mean Corpuscular Hemoglobin 31.3 pg (28.0-33.3); Mean Corpuscular Volume 103.1 fL (83.0-100.0); Mean Platelet Volume 9.5 fL (9.4-12.4); Monocytes # 0.7 K/mcL (0.0-1.3); Monocytes % 10.7 %; Neutrophils # 3.8 K/mcL (1.6-8.9); Platelet Count 205 K/mcL (140-400); Red Blood Count 3.51 M/mcL (4.19-5.50); Red Cell Distribution Width 14.6 % (11.5-14.5); Segmented Neutrophils % 62.6 %; White Blood Count 6.1 K/mcL (4.3-11.1)
[2021-01-26 05:01] LABS: INR 1.9; Prothrombin Time 21.2 Seconds (9.4-12.1)
[2021-01-26 05:16] LABS: BUN/Creatinine Ratio 20 (6-26); Blood Urea Nitrogen 25 mg/dL (6-20); Calcium 9.7 mg/dL (8.6-10.3); Carbon Dioxide 39 mEq/L (23-29); Chloride 96 mEq/L (98-107); Glucose 111 mg/dL (70-105); Magnesium 1.8 mg/dL (1.6-2.6); Osmolality,Calculated 297 (280-300); Potassium 3.2 mEq/L (3.5-5.1); Sodium 141 mEq/L (136-145); eGFR For African Americans > 60 (> 60); eGFR For Non-African Americans 59 (> 60)
[2021-01-26] MEDS: Albumin 25% 25gram/100mL 25 GM/100 ML IV.SOLN IVPB SCH ×2 (05:35→18:11)
[2021-01-26] MEDS: Insulin LISPRO 300 UNITS/3 ML VIAL SUBQ SCH ×3 (07:34→17:19)
[2021-01-26] MEDS ORDERED: Potassium Chloride 40 MEQ, Lidocaine 1% 2 ML in D5% in Water 500 ML IVPB ONE (07:55)
[2021-01-26] MEDS: Sucralfate 1 GM TABLET PO SCH ×4 (09:25→20:08)
[2021-01-26] MEDS: Aspirin Enteric Coated 81 MG Tablet PO SCH (09:25)
[2021-01-26] MEDS: Metoprolol XL (24 HR) Succ 25 MG TAB.ER.24H PO SCH ×2 (09:25→20:09)
[2021-01-26] MEDS: allopurinoL 100 MG TABLET PO SCH (09:26)
[2021-01-26] MEDS: Loratadine 10 MG TABLET PO SCH (09:26)
[2021-01-26] MEDS: acetaZOLAMIDE 250 MG TABLET PO SCH ×2 (09:26→20:09)
[2021-01-26] MEDS: DilTIAZem CD (24hr) 240 MG CAP.ER.24H PO SCH (09:26)
[2021-01-26] MEDS: metOLazone 5 MG TABLET PO SCH (09:27)
[2021-01-26] MEDS: Furosemide 20 MG/2 ML VIAL IVP SCH ×2 (09:27→20:07)
[2021-01-26] MEDS: *HR* OxyCODONE/APAP 10/325 TABLET PO PRN ×3 (09:41→23:33)
[2021-01-26] MEDS ORDERED: Saline Nasal Spray 44 ML BOTTLE NS PRN (15:16)
[2021-01-26] MEDS ORDERED: *HR* Warfarin 4 MG TABLET PO ONE (18:00)
[2021-01-26] MEDS: Acetaminophen 325 MG TABLET PO PRN (18:17)
[2021-01-26] MEDS: Latanoprost 2.5 ML BOTTLE BOTH EYES SCH (21:49)
[2021-01-27 03:32] LABS: Basophils % 0.5 %; Eosinophils # 0.2 K/mcL (0.0-0.6); Eosinophils % 2.7 %; Hemoglobin 11.4 g/dL (12.9-16.9); Immature Granulocytes % 0.3 % (0-4); Lymphocytes # 1.4 K/mcL (0.6-4.6); Lymphocytes % 21.5 %; Mean Corpuscular Hemoglobin 30.9 pg (28.0-33.3); Mean Platelet Volume 9.2 fL (9.4-12.4); Monocytes # 0.7 K/mcL (0.0-1.3); Monocytes % 11.1 %; Neutrophils # 4.3 K/mcL (1.6-8.9); Platelet Count 203 K/mcL (140-400); Red Blood Count 3.69 M/mcL (4.19-5.50); Red Cell Distribution Width 14.6 % (11.5-14.5); Segmented Neutrophils % 63.9 %; White Blood Count 6.7 K/mcL (4.3-11.1)
[2021-01-27 03:45] LABS: INR 1.9; Prothrombin Time 21.6 Seconds (9.4-12.1)
[2021-01-27 03:54] LABS: BUN/Creatinine Ratio 18 (6-26); Blood Urea Nitrogen 26 mg/dL (6-20); Carbon Dioxide 41 mEq/L (23-29); Chloride 96 mEq/L (98-107); Glucose 122 mg/dL (70-105); Magnesium 1.8 mg/dL (1.6-2.6); Osmolality,Calculated 296 (280-300); Potassium 3.7 mEq/L (3.5-5.1); Sodium 140 mEq/L (136-145); eGFR For African Americans > 60 (> 60); eGFR For Non-African Americans 51 (> 60)
[2021-01-27] MEDS: Sucralfate 1 GM TABLET PO SCH ×4 (06:31→20:34)
[2021-01-27] MEDS: Albumin 25% 25gram/100mL 25 GM/100 ML IV.SOLN IVPB SCH (06:49)
[2021-01-27] MEDS: *HR* OxyCODONE/APAP 10/325 TABLET PO PRN ×3 (06:54→21:21)
[2021-01-27] MEDS: Insulin LISPRO 300 UNITS/3 ML VIAL SUBQ SCH ×3 (07:20→16:02)
[2021-01-27] MEDS: DilTIAZem CD (24hr) 240 MG CAP.ER.24H PO SCH (08:35)
[2021-01-27] MEDS: Aspirin Enteric Coated 81 MG Tablet PO SCH (08:35)
[2021-01-27] MEDS: acetaZOLAMIDE 250 MG TABLET PO SCH ×2 (08:35→20:34)
[2021-01-27] MEDS: Metoprolol XL (24 HR) Succ 25 MG TAB.ER.24H PO SCH ×2 (08:36→20:34)
[2021-01-27] MEDS: Loratadine 10 MG TABLET PO SCH (08:36)
[2021-01-27] MEDS: allopurinoL 100 MG TABLET PO SCH (08:36)
[2021-01-27] MEDS ORDERED: Mag Hydrox/Al Hydrox/Simeth 30 ML UDC PO PRN (11:32)
[2021-01-27] MEDS ORDERED: WARFARIN PO ONE (18:00)
[2021-01-27] MEDS: Acetaminophen 325 MG TABLET PO PRN (18:43)
[2021-01-27] MEDS: Latanoprost 2.5 ML BOTTLE BOTH EYES SCH (20:34)
[2021-01-28 01:15] LABS: INR 2.1; Prothrombin Time 23.8 Seconds (9.4-12.1)
[2021-01-28 01:30] LABS: BUN/Creatinine Ratio 21 (6-26); Blood Urea Nitrogen 26 mg/dL (6-20); Calcium 9.8 mg/dL (8.6-10.3); Carbon Dioxide 40 mEq/L (23-29); Chloride 95 mEq/L (98-107); Glucose 138 mg/dL (70-105); Osmolality,Calculated 295 (280-300); Potassium 3.6 mEq/L (3.5-5.1); Sodium 139 mEq/L (136-145); eGFR For African Americans > 60 (> 60); eGFR For Non-African Americans > 60 (> 60)
[2021-01-28] MEDS: Insulin LISPRO 300 UNITS/3 ML VIAL SUBQ SCH ×3 (08:20→16:19)
[2021-01-28] MEDS: DilTIAZem CD (24hr) 240 MG CAP.ER.24H PO SCH (08:24)
[2021-01-28] MEDS: Aspirin Enteric Coated 81 MG Tablet PO SCH (08:24)
[2021-01-28] MEDS: Sucralfate 1 GM TABLET PO SCH ×4 (08:25→21:05)
[2021-01-28] MEDS: Loratadine 10 MG TABLET PO SCH (08:25)
[2021-01-28] MEDS: Furosemide 40 MG TABLET PO SCH (08:25)
[2021-01-28] MEDS: Metoprolol XL (24 HR) Succ 25 MG TAB.ER.24H PO SCH ×2 (08:25→21:05)
[2021-01-28] MEDS: acetaZOLAMIDE 250 MG TABLET PO SCH ×2 (08:25→21:06)
[2021-01-28] MEDS: allopurinoL 100 MG TABLET PO SCH (08:25)
[2021-01-28] MEDS ORDERED: WARFARIN PO ONE (18:00)
[2021-01-28] MEDS: *HR* OxyCODONE/APAP 10/325 TABLET PO PRN (21:05)
[2021-01-28] MEDS: Latanoprost 2.5 ML BOTTLE BOTH EYES SCH (21:08)
[2021-01-29 02:46] LABS: INR 2.2; Prothrombin Time 25.4 Seconds (9.4-12.1)
[2021-01-29 03:24] LABS: BUN/Creatinine Ratio 22 (6-26); Blood Urea Nitrogen 30 mg/dL (6-20); Carbon Dioxide 43 mEq/L (23-29); Chloride 94 mEq/L (98-107); Glucose 150 mg/dL (70-105); Osmolality,Calculated 299 (280-300); Potassium 3.1 mEq/L (3.5-5.1); Sodium 140 mEq/L (136-145); eGFR For African Americans > 60 (> 60); eGFR For Non-African Americans 55 (> 60)
[2021-01-29] MEDS ORDERED: Potassium Chloride Elixir 20 MEQ/15 ML UDC PO ONE (07:36)
[2021-01-29 07:39] VITALS: BP 130/95
[2021-01-29] MEDS: Insulin LISPRO 300 UNITS/3 ML VIAL SUBQ SCH (07:58)
[2021-01-29] MEDS: DilTIAZem CD (24hr) 240 MG CAP.ER.24H PO SCH (08:40)
[2021-01-29] MEDS: allopurinoL 100 MG TABLET PO SCH (08:40)
[2021-01-29] MEDS: Sucralfate 1 GM TABLET PO SCH (08:40)
[2021-01-29] MEDS: Furosemide 40 MG TABLET PO SCH (08:40)
[2021-01-29] MEDS: Metoprolol XL (24 HR) Succ 25 MG TAB.ER.24H PO SCH (08:40)
[2021-01-29] MEDS: acetaZOLAMIDE 250 MG TABLET PO SCH (08:40)
[2021-01-29] MEDS: Loratadine 10 MG TABLET PO SCH (08:40)
[2021-01-29] MEDS: Aspirin Enteric Coated 81 MG Tablet PO SCH (08:40)
[2021-01-29] MEDS ORDERED: WARFARIN PO ONE (18:00)
== END 2021-01-29 13:56 | disposition home health service (06) | DRG 291 ==
LOC: EMEROOARM 11:56 → 2ANU 11:56 → SUATTDRO 14:50 → 2ANU 15:44 → 2NENU 01-20 00:12 → SUATTDRO 01-20 20:08
PROVIDERS: ADMIT Internal Medicine; ATTEND Internal Medicine

== ENCOUNTER 2021-04-29 09:05 | Inpatient (IN) ==
[2021-04-29 09:42] LABS: Basophils % 0.3 %; Eosinophils # 0.1 K/mcL (0.0-0.6); Eosinophils % 1.5 %; Hematocrit 41.2 % (37.5-50.1); Immature Granulocytes % 0.3 % (0-4); Lymphocytes # 1.1 K/mcL (0.6-4.6); Lymphocytes % 18.3 %; Mean Corpuscular HGB Conc 29.1 g/dL (31.6-35.5); Mean Corpuscular Hemoglobin 28.6 pg (28.0-33.3); Mean Corpuscular Volume 98.1 fL (83.0-100.0); Mean Platelet Volume 8.9 fL (9.4-12.4); Monocytes # 0.8 K/mcL (0.0-1.3); Monocytes % 12.7 %; Neutrophils # 4.1 K/mcL (1.6-8.9); Platelet Count 191 K/mcL (140-400); Red Cell Distribution Width 16.3 % (11.5-14.5); Segmented Neutrophils % 66.9 %; White Blood Count 6.1 K/mcL (4.3-11.1)
[2021-04-29 09:54] LABS: INR 3.6; Prothrombin Time 39.8 Seconds (9.4-12.1)
[2021-04-29 10:01] LABS: BUN/Creatinine Ratio 15 (6-26); Blood Urea Nitrogen 32 mg/dL (6-20); Calcium 9.5 mg/dL (8.6-10.3); Carbon Dioxide 33 mEq/L (23-29); Chloride 104 mEq/L (98-107); Glucose 101 mg/dL (70-105); Magnesium 2.1 mg/dL (1.6-2.6); Osmolality,Calculated 299 (280-300); Potassium 3.8 mEq/L (3.5-5.1); Sodium 141 mEq/L (136-145); eGFR For African Americans 38 (> 60); eGFR For Non-African Americans 31 (> 60)
[2021-04-29 10:11] LABS: Troponin I < 0.03 ng/mL (< 0.04)
[2021-04-29 10:49] LABS: Bacteria,Urine Few per hpf (None-Few); Bilirubin,Urine Negative (Negative); Blood,Urine Negative (Negative); Calcium Oxalate Crystals,Urine Present per hpf; Clarity,Urine Clear (Clear); Color,Urine Yellow (Yellow); Glucose,Urine (UA) Normal (Normal); Ketones,Urine Negative (Negative); Leukocyte Esterase,Urine Small (Negative); Nitrite,Urine Negative (Negative); Protein,Urine Negative (Neg-Trace); RBC,Urine 0-3 per hpf (0-3); Specific Gravity,Urine 1.013 (1.010-1.025); Squamous Epithelial Cell,Urine Few per hpf (None-Few)
[2021-04-29] MEDS ORDERED: Mag Hydrox/Al Hydrox/Simeth 30 ML UDC PO PRN (13:44)
[2021-04-29] MEDS ORDERED: Ondansetron ODT 4 MG TAB.RAPDIS SL PRN (13:44)
[2021-04-29] MEDS ORDERED: Naloxone 0.4 MG/ML INJ IVP PRN (13:44)
[2021-04-29] MEDS ORDERED: Melatonin 3 MG TABLET PO PRN (13:44)
[2021-04-29] MEDS: Albumin 25% 25gram/100mL 25 GM/100 ML IV.SOLN IVPB SCH (16:28)
[2021-04-29] MEDS ORDERED: Albuterol 2.5 MG/3 ML NEBULIZER IH PRN (17:45)
[2021-04-29] MEDS ORDERED: *HR* Dextrose 50 % in Water (Vial) 50 ML VIAL IVP PRN (17:45)
[2021-04-29] MEDS ORDERED: D5% in Water 1,000 ML IVC PRN (17:45)
[2021-04-29] MEDS ORDERED: Dextrose Gel 15 GM/37.5 ML TUBE PO PRN ×2 (17:45)
[2021-04-29] MEDS ORDERED: Warfarin perPT PO PRN (18:00)
[2021-04-29] MEDS: predniSONE 20 MG TABLET PO SCH (18:10)
[2021-04-29] MEDS: Ipratropium/Albuterol Neb 3 ML IH SCH ×2 (19:45→23:40)
[2021-04-29] MEDS: Insulin LISPRO 300 UNITS/3 ML VIAL SUBQ SCH (20:29)
[2021-04-29] MEDS ORDERED: Fluticasone Propionate Nasal 50 MCG/SPRAY BOTTLE NS PRN (21:54)
[2021-04-29] MEDS ORDERED: Sucralfate 1 GM TABLET PO ONE (22:27)
[2021-04-29] MEDS: Sucralfate 1 GM TABLET PO SCH (22:28)
[2021-04-30] MEDS: Albumin 25% 25gram/100mL 25 GM/100 ML IV.SOLN IVPB SCH ×3 (03:35→15:33)
[2021-04-30] MEDS: Ipratropium/Albuterol Neb 3 ML IH SCH ×5 (03:52→20:16)
[2021-04-30 05:48] LABS: Hematocrit 38.8 % (37.5-50.1); Hemoglobin 11.7 g/dL (12.9-16.9); Mean Corpuscular HGB Conc 30.2 g/dL (31.6-35.5); Mean Corpuscular Volume 96.3 fL (83.0-100.0); Mean Platelet Volume 9.4 fL (9.4-12.4); Platelet Count 192 K/mcL (140-400); Red Blood Count 4.03 M/mcL (4.19-5.50); Red Cell Distribution Width 15.9 % (11.5-14.5); White Blood Count 4.3 K/mcL (4.3-11.1)
[2021-04-30 06:16] LABS: Calcium 9.6 mg/dL (8.6-10.3); Magnesium 2.1 mg/dL (1.6-2.6); Phosphorous 3.9 mg/dL (2.7-4.5); Potassium 4.2 mEq/L (3.5-5.1)
[2021-04-30] MEDS: Metoprolol XL (24 HR) Succ 25 MG TAB.ER.24H PO SCH ×2 (08:36→20:59)
[2021-04-30] MEDS: Sucralfate 1 GM TABLET PO SCH ×4 (08:37→20:59)
[2021-04-30] MEDS: hydrALAZINE 25 MG TABLET PO SCH ×3 (08:37→20:59)
[2021-04-30] MEDS: predniSONE 20 MG TABLET PO SCH (08:37)
[2021-04-30] MEDS: acetaZOLAMIDE 250 MG TABLET PO SCH ×2 (08:37→20:58)
[2021-04-30] MEDS: Furosemide 40 MG TABLET PO SCH (08:37)
[2021-04-30] MEDS: DilTIAZem CD (24hr) 240 MG CAP.ER.24H PO SCH (08:38)
[2021-04-30] MEDS: Aspirin Enteric Coated 81 MG Tablet PO SCH (08:38)
[2021-04-30] MEDS: Insulin LISPRO 300 UNITS/3 ML VIAL SUBQ SCH ×4 (08:40→21:00)
[2021-04-30 11:03] LABS: Protein/Creatinine Ratio,Urine 0.06 mg/mg (0.00-0.20); Sodium, Urine 14.6 mEq/L
[2021-04-30] MEDS: *HR* OxyCODONE/APAP 10/325 TABLET PO PRN ×2 (15:31→20:58)
[2021-04-30] MEDS ORDERED: *HR* Warfarin 5 MG TABLET PO ONE (18:00)
[2021-05-01] MEDS: Ipratropium/Albuterol Neb 3 ML IH SCH ×5 (00:01→16:09)
[2021-05-01] MEDS: Albumin 25% 25gram/100mL 25 GM/100 ML IV.SOLN IVPB SCH ×3 (01:51→15:35)
[2021-05-01 07:30] LABS: Hematocrit 37.4 % (37.5-50.1); Hemoglobin 11.2 g/dL (12.9-16.9); Mean Corpuscular HGB Conc 29.9 g/dL (31.6-35.5); Mean Corpuscular Hemoglobin 29.4 pg (28.0-33.3); Mean Corpuscular Volume 98.2 fL (83.0-100.0); Mean Platelet Volume 9.7 fL (9.4-12.4); Platelet Count 195 K/mcL (140-400); Red Blood Count 3.81 M/mcL (4.19-5.50); Red Cell Distribution Width 16.3 % (11.5-14.5); White Blood Count 6.4 K/mcL (4.3-11.1)
[2021-05-01 07:35] LABS: INR 2.1; Prothrombin Time 24.1 Seconds (9.4-12.1)
[2021-05-01 07:49] LABS: Calcium 9.8 mg/dL (8.6-10.3); Potassium 3.9 mEq/L (3.5-5.1)
[2021-05-01 08:01] LABS: Albumin 4.4 g/dL (3.5-5.7); Albumin/Globulin Ratio 1.6 (1.1-2.2); Bilirubin,Direct 0.2 mg/dL (0.0-0.2); Bilirubin,Indirect 0.6 mg/dL (0.0-1.0); Bilirubin,Total 0.8 mg/dL (0.3-1.0); Globulin 2.8 g/dL (2.4-3.5); Total Protein 7.2 g/dL (6.4-8.9)
[2021-05-01] MEDS: Insulin LISPRO 300 UNITS/3 ML VIAL SUBQ SCH ×4 (09:18→20:38)
[2021-05-01] MEDS: Metoprolol XL (24 HR) Succ 25 MG TAB.ER.24H PO SCH ×2 (10:38→20:39)
[2021-05-01] MEDS: hydrALAZINE 25 MG TABLET PO SCH ×3 (10:38→20:38)
[2021-05-01] MEDS: Furosemide 40 MG TABLET PO SCH (10:38)
[2021-05-01] MEDS: Vitamin E 200 UNIT (90MG) CAPSULE PO SCH (10:38)
[2021-05-01] MEDS: DilTIAZem CD (24hr) 240 MG CAP.ER.24H PO SCH (10:38)
[2021-05-01] MEDS: Sucralfate 1 GM TABLET PO SCH ×4 (10:39→20:38)
[2021-05-01] MEDS: allopurinoL 100 MG TABLET PO SCH (10:39)
[2021-05-01] MEDS: Aspirin Enteric Coated 81 MG Tablet PO SCH (10:39)
[2021-05-01] MEDS: acetaZOLAMIDE 250 MG TABLET PO SCH ×2 (10:39→20:38)
[2021-05-01] MEDS: predniSONE 20 MG TABLET PO SCH (10:39)
[2021-05-01] MEDS: *HR* OxyCODONE/APAP 10/325 TABLET PO PRN ×2 (10:42→15:34)
[2021-05-01] MEDS ORDERED: Furosemide 40 MG/4 ML VIAL IVP SCH (17:00)
[2021-05-01] MEDS ORDERED: *HR* Warfarin 7.5 MG TABLET PO ONE (18:00)
[2021-05-01] MEDS ORDERED: Acetaminophen IV 1,000 MG/100 ML BAG IVPB ONE (20:43)
[2021-05-02 06:26] LABS: Hematocrit 39.3 % (37.5-50.1); Hemoglobin 11.6 g/dL (12.9-16.9); Mean Corpuscular HGB Conc 29.5 g/dL (31.6-35.5); Mean Corpuscular Hemoglobin 29.2 pg (28.0-33.3); Mean Platelet Volume 9.2 fL (9.4-12.4); Platelet Count 196 K/mcL (140-400); Red Blood Count 3.97 M/mcL (4.19-5.50); Red Cell Distribution Width 16.1 % (11.5-14.5); White Blood Count 6.4 K/mcL (4.3-11.1)
[2021-05-02 06:36] LABS: INR 2.1; Prothrombin Time 23.7 Seconds (9.4-12.1)
[2021-05-02 06:46] LABS: Calcium 10.1 mg/dL (8.6-10.3); Potassium 4.3 mEq/L (3.5-5.1)
[2021-05-02] MEDS: *HR* OxyCODONE/APAP 10/325 TABLET PO PRN ×2 (06:52→12:19)
[2021-05-02] MEDS ORDERED: Furosemide 40 MG TABLET PO SCH ×2 (08:00→09:00)
[2021-05-02] MEDS: Insulin LISPRO 300 UNITS/3 ML VIAL SUBQ SCH ×2 (08:36→12:15)
[2021-05-02] MEDS: acetaZOLAMIDE 250 MG TABLET PO SCH (08:45)
[2021-05-02] MEDS: DilTIAZem CD (24hr) 240 MG CAP.ER.24H PO SCH (08:45)
[2021-05-02] MEDS: Metoprolol XL (24 HR) Succ 25 MG TAB.ER.24H PO SCH (08:45)
[2021-05-02] MEDS: hydrALAZINE 25 MG TABLET PO SCH (08:46)
[2021-05-02] MEDS: Vitamin E 200 UNIT (90MG) CAPSULE PO SCH (08:46)
[2021-05-02] MEDS: allopurinoL 100 MG TABLET PO SCH (08:46)
[2021-05-02] MEDS: Aspirin Enteric Coated 81 MG Tablet PO SCH (08:46)
[2021-05-02] MEDS: predniSONE 20 MG TABLET PO SCH (08:47)
[2021-05-02] MEDS: Sucralfate 1 GM TABLET PO SCH ×2 (08:47→12:19)
[2021-05-02 12:07] VITALS: BP 114/76
[2021-05-02] MEDS ORDERED: *HR* Warfarin 7.5 MG TABLET PO ONE (18:00)
[2021-05-04] MEDS ORDERED: Cholecalciferol (D-3) 1,000 UNIT (25MCG) TABLET PO SCH (09:00)
== END 2021-05-02 15:00 | disposition home health service (06) | DRG 682 ==
LOC: EMEROOARM 09:05 → 3ANU 09:05 → SUATTDRO 13:31 → 3ANU 14:50
PROVIDERS: ADMIT Family Medicine; ATTEND Family Medicine

== ENCOUNTER 2021-05-04 13:45 | Inpatient (IN) ==
[2021-05-04] MEDS ORDERED: 0.9 % Sodium Chloride 1,000 ML IVC ONE (14:35)
[2021-05-04 14:56] LABS: Basophils % 0.4 %; Eosinophils # 0.1 K/mcL (0.0-0.6); Eosinophils % 0.9 %; Hematocrit 44.5 % (37.5-50.1); Immature Granulocytes % 0.2 % (0-4); Lymphocytes # 1.9 K/mcL (0.6-4.6); Lymphocytes % 21.7 %; Mean Corpuscular HGB Conc 29.2 g/dL (31.6-35.5); Mean Corpuscular Hemoglobin 29.1 pg (28.0-33.3); Mean Corpuscular Volume 99.8 fL (83.0-100.0); Mean Platelet Volume 9.8 fL (9.4-12.4); Monocytes % 11.6 %; Neutrophils # 5.6 K/mcL (1.6-8.9); Platelet Count 201 K/mcL (140-400); Red Blood Count 4.46 M/mcL (4.19-5.50); Red Cell Distribution Width 16.4 % (11.5-14.5); Segmented Neutrophils % 65.2 %; White Blood Count 8.5 K/mcL (4.3-11.1)
[2021-05-04 15:11] LABS: Alanine Aminotransferase 20 Units/L (7-52); Albumin 4.1 g/dL (3.5-5.7); Albumin/Globulin Ratio 1.4 (1.1-2.2); Alkaline Phosphatase 79 Units/L (34-104); Aspartate Amino Transferase 21 Units/L (13-39); BUN/Creatinine Ratio 22 (6-26); Bilirubin,Direct 0.2 mg/dL (0.0-0.2); Bilirubin,Indirect 0.8 mg/dL (0.0-1.0); Blood Urea Nitrogen 66 mg/dL (6-20); Carbon Dioxide 34 mEq/L (23-29); Chloride 102 mEq/L (98-107); Glucose 107 mg/dL (70-105); Lipase 120 Units/L (11-82); Osmolality,Calculated 306 (280-300); Potassium 4.6 mEq/L (3.5-5.1); Sodium 138 mEq/L (136-145); Total Protein 7.1 g/dL (6.4-8.9); eGFR For African Americans 26 (> 60); eGFR For Non-African Americans 21 (> 60)
[2021-05-04 15:44] LABS: Bacteria,Urine Few per hpf (None-Few); Bilirubin,Urine Negative (Negative); Blood,Urine Negative (Negative); Clarity,Urine Turbid (Clear); Color,Urine Yellow (Yellow); Glucose,Urine (UA) Normal (Normal); Granular Casts,Urine Few per lpf (None Seen); Hyaline Casts,Urine Many per lpf (None Seen); Ketones,Urine Negative (Negative); Leukocyte Esterase,Urine Moderate (Negative); Mucus,Urine Few per lpf (None-Few); Nitrite,Urine Negative (Negative); PH,Urine 5.5 pH Units (5.0-8.0); Protein,Urine Negative (Neg-Trace); RBC,Urine 0-3 per hpf (0-3); Specific Gravity,Urine 1.018 (1.010-1.025); Squamous Epithelial Cell,Urine Few per hpf (None-Few); WBC,Urine 15-30 per hpf (0-3)
[2021-05-04 16:43] LABS: Troponin I < 0.03 ng/mL (< 0.04)
[2021-05-04] MEDS ORDERED: Ondansetron 4 MG/2 ML VIAL IVP PRN (17:01)
[2021-05-04] MEDS ORDERED: Acetaminophen 325 MG TABLET PO PRN (17:01)
[2021-05-04] MEDS ORDERED: Naloxone 0.4 MG/ML INJ IVP PRN (17:01)
[2021-05-04] MEDS ORDERED: Perflutren Lipid Microsphere 1.3 ML in 0.9 % Sodium Chloride 8.7 ML IVP PRN (17:14)
[2021-05-04] MEDS ORDERED: Dextrose Gel 15 GM/37.5 ML TUBE PO PRN ×2 (19:03)
[2021-05-04] MEDS ORDERED: D5% in Water 1,000 ML IVC PRN (19:03)
[2021-05-04] MEDS ORDERED: *HR* Dextrose 50 % in Water (Vial) 50 ML VIAL IVP PRN (19:03)
[2021-05-04] MEDS: Insulin LISPRO 300 UNITS/3 ML VIAL SUBQ SCH ×2 (19:49→19:50)
[2021-05-04] MEDS: Metoprolol XL (24 HR) Succ 25 MG TAB.ER.24H PO SCH (19:57)
[2021-05-04] MEDS: 0.9 % Sodium Chloride 1,000 ML IVC SCH (19:57)
[2021-05-04] MEDS: *HR* OxyCODONE/APAP 10/325 TABLET PO PRN (20:18)
[2021-05-05 00:57] LABS: Immature Granulocytes % 0.3 % (0-4)
[2021-05-05 00:59] LABS: Basophils % 0.5 %; Eosinophils # 0.1 K/mcL (0.0-0.6); Eosinophils % 1.3 %; Hematocrit 42.4 % (37.5-50.1); Hemoglobin 12.6 g/dL (12.9-16.9); Lymphocytes # 2.1 K/mcL (0.6-4.6); Lymphocytes % 24.1 %; Mean Corpuscular HGB Conc 29.7 g/dL (31.6-35.5); Mean Corpuscular Hemoglobin 29.4 pg (28.0-33.3); Mean Corpuscular Volume 98.8 fL (83.0-100.0); Mean Platelet Volume 9.7 fL (9.4-12.4); Monocytes # 0.9 K/mcL (0.0-1.3); Monocytes % 10.6 %; Neutrophils # 5.5 K/mcL (1.6-8.9); Platelet Count 204 K/mcL (140-400); Red Blood Count 4.29 M/mcL (4.19-5.50); Red Cell Distribution Width 16.3 % (11.5-14.5); Segmented Neutrophils % 63.2 %; White Blood Count 8.7 K/mcL (4.3-11.1)
[2021-05-05 01:01] LABS: VBG HCO3 31 mEq/L (21-27); VBG PCO2 74 mmHg (41-51); VBG PH 7.23 pH Units (7.32-7.42); VBG PO2 66 mmHg (25-50)
[2021-05-05 01:09] LABS: Prothrombin Time 23.1 Seconds (9.4-12.1)
[2021-05-05 01:11] LABS: Activated Partial Thrombo Time 32.8 Seconds (26.0-36.0)
[2021-05-05 01:22] LABS: Albumin 3.7 g/dL (3.5-5.7); Albumin/Globulin Ratio 1.3 (1.1-2.2); Bilirubin,Direct 0.2 mg/dL (0.0-0.2); Bilirubin,Indirect 0.7 mg/dL (0.0-1.0); Bilirubin,Total 0.9 mg/dL (0.3-1.0); Calcium 9.3 mg/dL (8.6-10.3); Globulin 2.8 g/dL (2.4-3.5); Magnesium 2.1 mg/dL (1.6-2.6); Potassium 4.7 mEq/L (3.5-5.1); Total Protein 6.5 g/dL (6.4-8.9)
[2021-05-05 01:35] LABS: Thyroid Stimulating Hormone 1.677 mcIU/mL (0.340-5.600)
[2021-05-05] MEDS: 0.9 % Sodium Chloride 1,000 ML IVC SCH (05:48)
[2021-05-05] MEDS ORDERED: *HR* Heparin 5,000 UNIT/ML VIAL SQ SCH (06:00)
[2021-05-05] MEDS: Insulin LISPRO 300 UNITS/3 ML VIAL SUBQ SCH ×4 (09:59→19:54)
[2021-05-05] MEDS: Metoprolol XL (24 HR) Succ 25 MG TAB.ER.24H PO SCH ×2 (10:03→21:57)
[2021-05-05] MEDS: *HR* OxyCODONE/APAP 10/325 TABLET PO PRN (10:26)
[2021-05-05] MEDS ORDERED: Fluticasone Propionate Nasal 50 MCG/SPRAY BOTTLE NS PRN (15:40)
[2021-05-05] MEDS: Sucralfate 1 GM TABLET PO SCH ×2 (17:05→21:57)
[2021-05-05 17:49] LABS: Estimated Average Glucose 120 mg/dl; Hemoglobin A1C 5.8 %
[2021-05-05] MEDS ORDERED: Lactulose Oral Soln 20 GM/30 ML UDC PO ONE (21:31)
[2021-05-05] MEDS: hydrALAZINE 25 MG TABLET PO SCH (21:57)
[2021-05-05 22:15] LABS: VBG HCO3 31 mEq/L (21-27); VBG PCO2 80 mmHg (41-51); VBG PO2 57 mmHg (25-50)
[2021-05-05] MEDS ORDERED: Ipratropium/Albuterol Neb 3 ML IH PRN (22:25)
[2021-05-05] MEDS: Ipratropium/Albuterol Neb 3 ML IH SCH (23:36)
[2021-05-06] MEDS: Ipratropium/Albuterol Neb 3 ML IH SCH ×5 (03:18→20:14)
[2021-05-06 05:54] LABS: Basophils % 0.3 %; Eosinophils # 0.1 K/mcL (0.0-0.6); Eosinophils % 2.2 %; Hemoglobin 11.1 g/dL (12.9-16.9); Immature Granulocytes % 0.2 % (0-4); Lymphocytes # 1.3 K/mcL (0.6-4.6); Lymphocytes % 22.5 %; Mean Corpuscular Hemoglobin 29.4 pg (28.0-33.3); Mean Corpuscular Volume 97.9 fL (83.0-100.0); Mean Platelet Volume 9.7 fL (9.4-12.4); Monocytes # 0.8 K/mcL (0.0-1.3); Monocytes % 13.4 %; Neutrophils # 3.6 K/mcL (1.6-8.9); Platelet Count 146 K/mcL (140-400); Red Blood Count 3.78 M/mcL (4.19-5.50); Segmented Neutrophils % 61.4 %; White Blood Count 5.8 K/mcL (4.3-11.1)
[2021-05-06 05:54] LABS: VBG HCO3 30 mEq/L (21-27); VBG PCO2 62 mmHg (41-51); VBG PH 7.29 pH Units (7.32-7.42); VBG PO2 117 mmHg (25-50)
[2021-05-06 06:06] LABS: Calcium 8.9 mg/dL (8.6-10.3); Magnesium 2.2 mg/dL (1.6-2.6); Potassium 4.2 mEq/L (3.5-5.1)
[2021-05-06 07:43] LABS: Hepatitis B Surface Antigen Nonreactive (Nonreactive)
[2021-05-06 08:12] LABS: Hepatitis C Virus Antibody Nonreactive (Nonreactive)
[2021-05-06 08:13] LABS: Hepatitis B Core IgM Nonreactive (Nonreactive)
[2021-05-06] MEDS: Vitamin B Complex/Vit C/Vit E 1 EACH TABLET PO SCH (08:13)
[2021-05-06] MEDS: Cholecalciferol (D-3) 1,000 UNIT (25MCG) TABLET PO SCH ×2 (08:14→08:26)
[2021-05-06] MEDS: Aspirin Enteric Coated 81 MG Tablet PO SCH (08:14)
[2021-05-06] MEDS: Vitamin E 200 UNIT (90MG) CAPSULE PO SCH (08:14)
[2021-05-06] MEDS: Sucralfate 1 GM TABLET PO SCH ×4 (08:14→20:20)
[2021-05-06] MEDS: hydrALAZINE 25 MG TABLET PO SCH ×3 (08:14→20:20)
[2021-05-06] MEDS: Metoprolol XL (24 HR) Succ 25 MG TAB.ER.24H PO SCH ×2 (08:14→20:20)
[2021-05-06] MEDS: Insulin LISPRO 300 UNITS/3 ML VIAL SUBQ SCH ×4 (08:15→21:46)
[2021-05-06] MEDS: allopurinoL 100 MG TABLET PO SCH (08:15)
[2021-05-06] MEDS: DilTIAZem CD (24hr) 240 MG CAP.ER.24H PO SCH (08:15)
[2021-05-06] MEDS: *HR* OxyCODONE/APAP 10/325 TABLET PO PRN ×2 (08:29→17:58)
[2021-05-06] MEDS: 0.9 % Sodium Chloride 1,000 ML IVC SCH (08:54)
[2021-05-06] MEDS: Lactulose Oral Soln 20 GM/30 ML UDC PO SCH ×2 (08:55→20:19)
[2021-05-06] MEDS: cefTRIAXone 1,000 MG in Water for inj. (sterile) 10 ML IVP SCH (08:55)
[2021-05-06] MEDS ORDERED: Warfarin perPT PO PRN ×2 (09:00→18:00)
[2021-05-06] MEDS ORDERED: 0.9 % Sodium Chloride 1,000 ML IVC SCH (14:00)
[2021-05-06 16:24] LABS: ABG Base Excess 3 mEq/L (-2 to 3); ABG HCO3 31 mEq/L (21-27); ABG Oxygen Saturation 100 % (95-98); ABG PCO2 59 mmHg (35-45); ABG PH 7.32 pH Units (7.32-7.45); ABG PO2 197 mmHg (85-104); ABG TCO2 32 mEq/L (20-26)
[2021-05-06 17:35] LABS: INR 1.9; Prothrombin Time 21.8 Seconds (9.4-12.1)
[2021-05-06] MEDS ORDERED: *HR* Warfarin 7.5 MG TABLET PO ONE (18:00)
[2021-05-06 19:38] LABS: Sodium, Urine 19.2 mEq/L
[2021-05-07] MEDS: Ipratropium/Albuterol Neb 3 ML IH SCH ×7 (00:08→23:41)
[2021-05-07 03:56] LABS: Basophils % 0.5 %; Eosinophils # 0.1 K/mcL (0.0-0.6); Eosinophils % 1.8 %; Hematocrit 36.8 % (37.5-50.1); Hemoglobin 11.2 g/dL (12.9-16.9); Immature Granulocytes % 0.2 % (0-4); Lymphocytes # 1.5 K/mcL (0.6-4.6); Lymphocytes % 26.8 %; Mean Corpuscular HGB Conc 30.4 g/dL (31.6-35.5); Mean Corpuscular Hemoglobin 29.4 pg (28.0-33.3); Mean Corpuscular Volume 96.6 fL (83.0-100.0); Mean Platelet Volume 9.7 fL (9.4-12.4); Monocytes # 0.7 K/mcL (0.0-1.3); Monocytes % 12.1 %; Neutrophils # 3.3 K/mcL (1.6-8.9); Platelet Count 145 K/mcL (140-400); Red Blood Count 3.81 M/mcL (4.19-5.50); Red Cell Distribution Width 15.9 % (11.5-14.5); Segmented Neutrophils % 58.6 %; White Blood Count 5.6 K/mcL (4.3-11.1)
[2021-05-07 04:02] LABS: INR 1.8; Prothrombin Time 20.9 Seconds (9.4-12.1)
[2021-05-07 04:14] LABS: Magnesium 2.2 mg/dL (1.6-2.6); Phosphorous 3.1 mg/dL (2.7-4.5)
[2021-05-07] MEDS: Lactulose Oral Soln 20 GM/30 ML UDC PO SCH ×2 (08:56→21:41)
[2021-05-07] MEDS: cefTRIAXone 1,000 MG in Water for inj. (sterile) 10 ML IVP SCH (08:56)
[2021-05-07] MEDS: Aspirin Enteric Coated 81 MG Tablet PO SCH (08:57)
[2021-05-07] MEDS: DilTIAZem CD (24hr) 240 MG CAP.ER.24H PO SCH (08:57)
[2021-05-07] MEDS: Metoprolol XL (24 HR) Succ 25 MG TAB.ER.24H PO SCH ×2 (08:57→21:42)
[2021-05-07] MEDS: Vitamin E 200 UNIT (90MG) CAPSULE PO SCH (08:57)
[2021-05-07] MEDS: Sucralfate 1 GM TABLET PO SCH ×4 (08:58→21:42)
[2021-05-07] MEDS: Vitamin B Complex/Vit C/Vit E 1 EACH TABLET PO SCH (08:58)
[2021-05-07] MEDS: hydrALAZINE 25 MG TABLET PO SCH ×3 (08:58→21:41)
[2021-05-07] MEDS: allopurinoL 100 MG TABLET PO SCH (08:58)
[2021-05-07] MEDS: *HR* OxyCODONE/APAP 10/325 TABLET PO PRN ×3 (08:58→23:01)
[2021-05-07] MEDS: Insulin LISPRO 300 UNITS/3 ML VIAL SUBQ SCH ×4 (08:58→21:40)
[2021-05-07] MEDS: Cholecalciferol (D-3) 1,000 UNIT (25MCG) TABLET PO SCH (08:58)
[2021-05-07] MEDS ORDERED: *HR* Warfarin 7.5 MG TABLET PO ONE (18:00)
[2021-05-08] MEDS: Ipratropium/Albuterol Neb 3 ML IH SCH ×6 (03:40→23:55)
[2021-05-08 07:00] LABS: INR 1.8; Prothrombin Time 20.6 Seconds (9.4-12.1)
[2021-05-08 07:01] LABS: Calcium 9.3 mg/dL (8.6-10.3); Magnesium 2.1 mg/dL (1.6-2.6); Phosphorous 2.8 mg/dL (2.7-4.5)
[2021-05-08] MEDS: Sucralfate 1 GM TABLET PO SCH ×4 (08:09→22:18)
[2021-05-08] MEDS: Vitamin E 200 UNIT (90MG) CAPSULE PO SCH (08:09)
[2021-05-08] MEDS: hydrALAZINE 25 MG TABLET PO SCH ×3 (08:09→22:19)
[2021-05-08] MEDS: *HR* OxyCODONE/APAP 10/325 TABLET PO PRN ×3 (08:09→22:18)
[2021-05-08] MEDS: allopurinoL 100 MG TABLET PO SCH (08:10)
[2021-05-08] MEDS: Cholecalciferol (D-3) 1,000 UNIT (25MCG) TABLET PO SCH (08:10)
[2021-05-08] MEDS: Vitamin B Complex/Vit C/Vit E 1 EACH TABLET PO SCH (08:10)
[2021-05-08] MEDS: Metoprolol XL (24 HR) Succ 25 MG TAB.ER.24H PO SCH ×2 (08:10→22:18)
[2021-05-08] MEDS: Lactulose Oral Soln 20 GM/30 ML UDC PO SCH ×2 (08:10→22:20)
[2021-05-08] MEDS: cefTRIAXone 1,000 MG in Water for inj. (sterile) 10 ML IVP SCH (08:10)
[2021-05-08] MEDS: Aspirin Enteric Coated 81 MG Tablet PO SCH (08:10)
[2021-05-08] MEDS: DilTIAZem CD (24hr) 240 MG CAP.ER.24H PO SCH (08:10)
[2021-05-08] MEDS: Insulin LISPRO 300 UNITS/3 ML VIAL SUBQ SCH ×4 (08:11→22:20)
[2021-05-08] MEDS ORDERED: *HR* Warfarin 7.5 MG TABLET PO ONE (18:00)
[2021-05-08 18:24] LABS: Adenovirus Not Detected (Not Detect); Bordetella Pertussis Not Detected (Not Detect); Chlamydophila pneumoniae Not Detected (Not Detect); Coronavirus 229E Not Detected (Not Detect); Coronavirus HKU1 Not Detected (Not Detect); Coronavirus NL63 Not Detected (Not Detect); Coronavirus OC43 Not Detected (Not Detect); Human Metapneumovirus Not Detected (Not Detect); Human Rhinovirus/Enterovirus Not Detected (Not Detect); Influenza A Subtype 2009 H1 Not Detected (Not Detect); Influenza B Not Detected (Not Detect); Mycoplasma pneumoniae Not Detected (Not Detect); Parainfluenza Virus 1 Not Detected (Not Detect); Parainfluenza Virus 2 Not Detected (Not Detect); Parainfluenza Virus 3 Not Detected (Not Detect); Parainfluenza Virus 4 Not Detected (Not Detect); Respiratory Syncytial Virus Not Detected (Not Detect); SARS-CoV-2 Not Detected (Not Detect)
[2021-05-09 02:55] LABS: INR 1.7; Prothrombin Time 19.7 Seconds (9.4-12.1)
[2021-05-09 03:03] LABS: BUN/Creatinine Ratio 26 (6-26); Blood Urea Nitrogen 34 mg/dL (6-20); Calcium 9.7 mg/dL (8.6-10.3); Carbon Dioxide 32 mEq/L (23-29); Chloride 104 mEq/L (98-107); Glucose 130 mg/dL (70-105); Osmolality,Calculated 297 (280-300); Phosphorous 2.8 mg/dL (2.7-4.5); Potassium 4.2 mEq/L (3.5-5.1); Sodium 139 mEq/L (136-145); eGFR For African Americans > 60 (> 60); eGFR For Non-African Americans 56 (> 60)
[2021-05-09] MEDS: Ipratropium/Albuterol Neb 3 ML IH SCH ×4 (03:24→15:45)
[2021-05-09] MEDS ORDERED: Furosemide 40 MG TABLET PO SCH (09:00)
[2021-05-09] MEDS: Vitamin E 200 UNIT (90MG) CAPSULE PO SCH (09:42)
[2021-05-09] MEDS: allopurinoL 100 MG TABLET PO SCH (09:43)
[2021-05-09] MEDS: hydrALAZINE 25 MG TABLET PO SCH (09:44)
[2021-05-09] MEDS: Cholecalciferol (D-3) 1,000 UNIT (25MCG) TABLET PO SCH (09:44)
[2021-05-09] MEDS: Aspirin Enteric Coated 81 MG Tablet PO SCH (09:44)
[2021-05-09] MEDS: *HR* OxyCODONE/APAP 10/325 TABLET PO PRN (09:46)
[2021-05-09] MEDS: Lactulose Oral Soln 20 GM/30 ML UDC PO SCH (09:46)
[2021-05-09] MEDS: DilTIAZem CD (24hr) 240 MG CAP.ER.24H PO SCH (09:47)
[2021-05-09] MEDS: Metoprolol XL (24 HR) Succ 25 MG TAB.ER.24H PO SCH (09:47)
[2021-05-09] MEDS: Vitamin B Complex/Vit C/Vit E 1 EACH TABLET PO SCH (09:48)
[2021-05-09] MEDS: Insulin LISPRO 300 UNITS/3 ML VIAL SUBQ SCH ×2 (09:49→14:01)
[2021-05-09] MEDS: Sucralfate 1 GM TABLET PO SCH ×2 (09:51→14:01)
[2021-05-09 11:26] VITALS: BP 107/70
[2021-05-09] MEDS ORDERED: *HR* Warfarin 10 MG TABLET PO ONE (18:00)
== END 2021-05-09 16:13 | DRG 682 ==
LOC: EMEROOARM 13:45 → 2ANU 13:45 → SUATTDRO 17:21 → 2ANU 18:51 → SUATTDRO 05-05 16:48
PROVIDERS: ADMIT Pharmacist; ATTEND Internal Medicine

== ENCOUNTER 2021-06-12 12:36 | Inpatient (IN) ==
[2021-06-12 13:21] LABS: Basophils % 0.3 %; Eosinophils # 0.1 K/mcL (0.0-0.6); Eosinophils % 1.4 %; Hematocrit 38.5 % (37.5-50.1); Hemoglobin 11.5 g/dL (12.9-16.9); Immature Granulocytes % 0.1 % (0-4); Lymphocytes # 1.2 K/mcL (0.6-4.6); Lymphocytes % 15.8 %; Mean Corpuscular HGB Conc 29.9 g/dL (31.6-35.5); Mean Corpuscular Hemoglobin 29.6 pg (28.0-33.3); Mean Corpuscular Volume 99.2 fL (83.0-100.0); Mean Platelet Volume 9.4 fL (9.4-12.4); Monocytes # 0.9 K/mcL (0.0-1.3); Monocytes % 11.7 %; Neutrophils # 5.2 K/mcL (1.6-8.9); Platelet Count 212 K/mcL (140-400); Red Blood Count 3.88 M/mcL (4.19-5.50); Red Cell Distribution Width 16.5 % (11.5-14.5); Segmented Neutrophils % 70.7 %; White Blood Count 7.3 K/mcL (4.3-11.1)
[2021-06-12 13:42] LABS: BUN/Creatinine Ratio 11 (6-26); Blood Urea Nitrogen 33 mg/dL (6-20); Calcium 9.4 mg/dL (8.6-10.3); Carbon Dioxide 33 mEq/L (23-29); Chloride 96 mEq/L (98-107); Glucose 123 mg/dL (70-105); Osmolality,Calculated 289 (280-300); Potassium 5.6 mEq/L (3.5-5.1); Sodium 135 mEq/L (136-145); Troponin I < 0.03 ng/mL (< 0.04); eGFR For African Americans 25 (> 60); eGFR For Non-African Americans 21 (> 60)
[2021-06-12] MEDS ORDERED: Furosemide 40 MG in 0.9 % Sodium Chloride 50 ML IVPB ONE (14:39)
[2021-06-12] MEDS ORDERED: Ipratropium/Albuterol Neb 3 ML IH ONE (14:39)
[2021-06-12] MEDS ORDERED: Calcium Gluconate 1gm/50mL 1 GM/50 ML BAG IVPB PRN (14:40)
[2021-06-12] MEDS ORDERED: Insulin Human Regular 10 UNIT in 0.9 % Sodium Chloride 10 ML IV ONE (14:40)
[2021-06-12] MEDS ORDERED: *HR* Dextrose 50 % in Water (Vial) 50 ML VIAL IVP STA (14:40)
[2021-06-12] MEDS ORDERED: Furosemide 40 MG/4 ML VIAL IVP ONE (14:44)
[2021-06-12] MEDS ORDERED: Insulin Regular, Human 100 UNIT/ML ONE (15:14)
[2021-06-12] MEDS ORDERED: Albumin 25% 25gram/100mL 25 GM/100 ML IV.SOLN IVPB ONE (16:13)
[2021-06-12] MEDS ORDERED: Acetaminophen 325 MG TABLET PO PRN (16:21)
[2021-06-12] MEDS ORDERED: Naloxone 0.4 MG/ML INJ IVP PRN (16:21)
[2021-06-12] MEDS ORDERED: methylPREDNISolone 125 MG/2 ML VIAL IVP ONE (16:24)
[2021-06-12 17:11] LABS: Bilirubin,Urine Negative (Negative); Blood,Urine Negative (Negative); Clarity,Urine Turbid (Clear); Color,Urine Dark-Yellow (Yellow); Glucose,Urine (UA) Normal (Normal); Granular Casts,Urine Few per lpf (None Seen); Hyaline Casts,Urine Many per lpf (None Seen); Ketones,Urine Trace mg/dL (Negative); Leukocyte Esterase,Urine Moderate (Negative); Mucus,Urine Few per lpf (None-Few); Nitrite,Urine Negative (Negative); Protein,Urine 50 mg/dL (Neg-Trace); RBC,Urine 0-3 per hpf (0-3); Specific Gravity,Urine 1.017 (1.010-1.025); Squamous Epithelial Cell,Urine Few per hpf (None-Few); Urobilinogen,Urine Normal (Normal); WBC,Urine 50-100 per hpf (0-3)
[2021-06-12 18:07] LABS: Protein/Creatinine Ratio,Urine 0.18 mg/mg (0.00-0.20)
[2021-06-12] MEDS: 0.9 % Sodium Chloride 1,000 ML IVC SCH (19:25)
[2021-06-12] MEDS: Sucralfate 1 GM TABLET PO SCH (21:14)
[2021-06-12] MEDS ORDERED: *HR* OxyCODONE Immed Rel 5 MG TABLET PO ONE (21:40)
[2021-06-12] MEDS: Albumin 25% 25gram/100mL 25 GM/100 ML IV.SOLN IVPB SCH (23:13)
[2021-06-13] MEDS: 0.9 % Sodium Chloride 1,000 ML IVC SCH (05:32)
[2021-06-13] MEDS: Cholecalciferol (D-3) 1,000 UNIT (25MCG) TABLET PO SCH (07:33)
[2021-06-13] MEDS: Vitamin E 200 UNIT (90MG) CAPSULE PO SCH (07:34)
[2021-06-13] MEDS: Aspirin Enteric Coated 81 MG Tablet PO SCH (07:34)
[2021-06-13] MEDS: Sucralfate 1 GM TABLET PO SCH ×4 (07:34→21:38)
[2021-06-13] MEDS: Vitamin B Complex/Vit C/Vit E 1 EACH TABLET PO SCH (07:34)
[2021-06-13] MEDS: allopurinoL 100 MG TABLET PO SCH (07:34)
[2021-06-13] MEDS: Albumin 25% 25gram/100mL 25 GM/100 ML IV.SOLN IVPB SCH ×2 (07:34→15:19)
[2021-06-13] MEDS: *HR* OxyCODONE Immed Rel 5 MG TABLET PO PRN ×2 (08:08→21:38)
[2021-06-13 13:28] LABS: Basophils % 0.2 %; Hematocrit 38.2 % (37.5-50.1); Hemoglobin 11.3 g/dL (12.9-16.9); Immature Granulocytes % 0.3 % (0-4); Lymphocytes # 0.5 K/mcL (0.6-4.6); Lymphocytes % 7.1 %; Mean Corpuscular HGB Conc 29.6 g/dL (31.6-35.5); Mean Corpuscular Hemoglobin 29.4 pg (28.0-33.3); Mean Corpuscular Volume 99.5 fL (83.0-100.0); Mean Platelet Volume 9.1 fL (9.4-12.4); Monocytes # 0.3 K/mcL (0.0-1.3); Neutrophils # 5.6 K/mcL (1.6-8.9); Platelet Count 184 K/mcL (140-400); Red Blood Count 3.84 M/mcL (4.19-5.50); Red Cell Distribution Width 16.2 % (11.5-14.5); Segmented Neutrophils % 87.4 %; White Blood Count 6.4 K/mcL (4.3-11.1)
[2021-06-13 13:37] LABS: INR 2.5; Prothrombin Time 28.5 Seconds (9.4-12.1)
[2021-06-13 13:50] LABS: Albumin/Globulin Ratio 1.2 (1.1-2.2); Bilirubin,Direct 0.3 mg/dL (0.0-0.2); Bilirubin,Indirect 0.4 mg/dL (0.0-1.0); Bilirubin,Total 0.7 mg/dL (0.3-1.0); Calcium 9.5 mg/dL (8.6-10.3); Globulin 3.3 g/dL (2.4-3.5); Magnesium 1.9 mg/dL (1.6-2.6); Total Protein 7.3 g/dL (6.4-8.9)
[2021-06-13] MEDS ORDERED: SODIUM ZIRCONIUM CYCLOSILICATE 5 GM POWD.PACK PO ONE ×2 (15:06→21:08)
[2021-06-13] MEDS: *HR* Heparin 5,000 UNIT/ML VIAL SQ SCH (17:58)
[2021-06-13] MEDS ORDERED: Insulin Human Regular 10 UNIT in 0.9 % Sodium Chloride 10 ML IV ONE (21:05)
[2021-06-13] MEDS ORDERED: *HR* Dextrose 50 % in Water (Vial) 50 ML VIAL IVP ONE (21:07)
[2021-06-13] MEDS ORDERED: Ipratropium/Albuterol Neb 3 ML IH ONE (21:11)
[2021-06-13] MEDS ORDERED: Calcium Gluconate 1gm/50mL 1 GM/50 ML BAG IVPB ONE (21:11)
[2021-06-14] MEDS: Albumin 25% 25gram/100mL 25 GM/100 ML IV.SOLN IVPB SCH ×3 (00:36→15:12)
[2021-06-14 02:22] LABS: Calcium 9.2 mg/dL (8.6-10.3); Potassium 5.6 mEq/L (3.5-5.1)
[2021-06-14] MEDS: *HR* Heparin 5,000 UNIT/ML VIAL SQ SCH ×2 (06:15→18:09)
[2021-06-14] MEDS: allopurinoL 100 MG TABLET PO SCH (08:23)
[2021-06-14] MEDS: Vitamin B Complex/Vit C/Vit E 1 EACH TABLET PO SCH (08:23)
[2021-06-14] MEDS: Aspirin Enteric Coated 81 MG Tablet PO SCH (08:23)
[2021-06-14] MEDS: Sucralfate 1 GM TABLET PO SCH ×4 (08:23→21:39)
[2021-06-14] MEDS: Vitamin E 200 UNIT (90MG) CAPSULE PO SCH (08:23)
[2021-06-14] MEDS: Cholecalciferol (D-3) 1,000 UNIT (25MCG) TABLET PO SCH (08:23)
[2021-06-14] MEDS: *HR* OxyCODONE Immed Rel 5 MG TABLET PO PRN ×2 (08:29→21:39)
[2021-06-14 09:34] LABS: Calcium 9.2 mg/dL (8.6-10.3); Potassium 5.3 mEq/L (3.5-5.1)
[2021-06-14] MEDS: SODIUM ZIRCONIUM CYCLOSILICATE 5 GM POWD.PACK PO SCH (10:29)
[2021-06-14] MEDS ORDERED: Menthol 1 EACH LOZENGE PO PRN (13:45)
[2021-06-14] MEDS: Lactulose Oral Soln 20 GM/30 ML UDC PO SCH (21:39)
[2021-06-15] MEDS: Albumin 25% 25gram/100mL 25 GM/100 ML IV.SOLN IVPB SCH ×3 (00:18→16:05)
[2021-06-15 05:29] LABS: Basophils % 0.4 %; Eosinophils # 0.1 K/mcL (0.0-0.6); Eosinophils % 1.1 %; Hematocrit 34.5 % (37.5-50.1); Immature Granulocytes % 0.2 % (0-4); Lymphocytes # 1.4 K/mcL (0.6-4.6); Lymphocytes % 26.6 %; Mean Corpuscular Hemoglobin 28.9 pg (28.0-33.3); Mean Corpuscular Volume 99.7 fL (83.0-100.0); Mean Platelet Volume 9.3 fL (9.4-12.4); Monocytes # 0.6 K/mcL (0.0-1.3); Monocytes % 11.9 %; Neutrophils # 3.2 K/mcL (1.6-8.9); Platelet Count 162 K/mcL (140-400); Red Blood Count 3.46 M/mcL (4.19-5.50); Red Cell Distribution Width 16.3 % (11.5-14.5); Segmented Neutrophils % 59.8 %; White Blood Count 5.3 K/mcL (4.3-11.1)
[2021-06-15 05:36] LABS: INR 2.2; Prothrombin Time 24.4 Seconds (9.4-12.1)
[2021-06-15 05:52] LABS: Calcium 9.3 mg/dL (8.6-10.3); Phosphorous 3.9 mg/dL (2.7-4.5)
[2021-06-15] MEDS: Vitamin E 200 UNIT (90MG) CAPSULE PO SCH (07:29)
[2021-06-15] MEDS: Cholecalciferol (D-3) 1,000 UNIT (25MCG) TABLET PO SCH (07:29)
[2021-06-15] MEDS: Vitamin B Complex/Vit C/Vit E 1 EACH TABLET PO SCH (07:29)
[2021-06-15] MEDS: Sucralfate 1 GM TABLET PO SCH ×4 (07:29→20:56)
[2021-06-15] MEDS: Aspirin Enteric Coated 81 MG Tablet PO SCH (07:29)
[2021-06-15] MEDS: allopurinoL 100 MG TABLET PO SCH (07:29)
[2021-06-15] MEDS: SODIUM ZIRCONIUM CYCLOSILICATE 5 GM POWD.PACK PO SCH (07:30)
[2021-06-15] MEDS: Lactulose Oral Soln 20 GM/30 ML UDC PO SCH ×3 (07:30→21:28)
[2021-06-15] MEDS ORDERED: *HR* Metoprolol 5 MG/5 ML VIAL IVP PRN (08:53)
[2021-06-15] MEDS ORDERED: Metoprolol XL (24 HR) Succ 25 MG TAB.ER.24H PO SCH (09:00)
[2021-06-15] MEDS: *HR* Metoprolol 5 MG/5 ML VIAL IVP SCH ×2 (13:45→18:31)
[2021-06-16] MEDS: *HR* Metoprolol 5 MG/5 ML VIAL IVP SCH ×2 (00:24→04:56)
[2021-06-16] MEDS: Albumin 25% 25gram/100mL 25 GM/100 ML IV.SOLN IVPB SCH ×4 (00:24→23:52)
[2021-06-16 05:09] LABS: VBG HCO3 36 mEq/L (21-27); VBG PCO2 81 mmHg (41-51); VBG PH 7.25 pH Units (7.32-7.42); VBG PO2 172 mmHg (25-50)
[2021-06-16 05:14] LABS: Basophils % 0.4 %; Eosinophils # 0.1 K/mcL (0.0-0.6); Eosinophils % 1.9 %; Hemoglobin 11.2 g/dL (12.9-16.9); Immature Granulocytes % 0.2 % (0-4); Lymphocytes # 1.2 K/mcL (0.6-4.6); Lymphocytes % 23.6 %; Mean Corpuscular HGB Conc 30.3 g/dL (31.6-35.5); Mean Corpuscular Hemoglobin 30.1 pg (28.0-33.3); Mean Corpuscular Volume 99.5 fL (83.0-100.0); Mean Platelet Volume 9.3 fL (9.4-12.4); Monocytes # 0.7 K/mcL (0.0-1.3); Monocytes % 13.5 %; Neutrophils # 3.1 K/mcL (1.6-8.9); Platelet Count 165 K/mcL (140-400); Red Blood Count 3.72 M/mcL (4.19-5.50); Red Cell Distribution Width 16.2 % (11.5-14.5); Segmented Neutrophils % 60.4 %; White Blood Count 5.2 K/mcL (4.3-11.1)
[2021-06-16 05:21] LABS: INR 1.8; Prothrombin Time 20.2 Seconds (9.4-12.1)
[2021-06-16 05:31] LABS: Calcium 9.6 mg/dL (8.6-10.3); Phosphorous 3.5 mg/dL (2.7-4.5); Potassium 4.8 mEq/L (3.5-5.1)
[2021-06-16 05:33] LABS: % Iron Saturation 20 % (20-55); Iron 53 mcg/dL (65-175); Transferrin 194 mg/dL (203-362)
[2021-06-16 05:51] LABS: Ferritin 65 ng/mL (20-250)
[2021-06-16 05:56] LABS: Folate 12.4 ng/mL (3.0-16.0)
[2021-06-16] MEDS: SODIUM ZIRCONIUM CYCLOSILICATE 5 GM POWD.PACK PO SCH (07:39)
[2021-06-16] MEDS: Vitamin E 200 UNIT (90MG) CAPSULE PO SCH (07:40)
[2021-06-16] MEDS: Aspirin Enteric Coated 81 MG Tablet PO SCH (07:40)
[2021-06-16] MEDS: allopurinoL 100 MG TABLET PO SCH (07:40)
[2021-06-16] MEDS: Sucralfate 1 GM TABLET PO SCH ×4 (07:40→20:59)
[2021-06-16] MEDS: Cholecalciferol (D-3) 1,000 UNIT (25MCG) TABLET PO SCH (07:40)
[2021-06-16] MEDS: Vitamin B Complex/Vit C/Vit E 1 EACH TABLET PO SCH (07:40)
[2021-06-16] MEDS: Lactulose Oral Soln 20 GM/30 ML UDC PO SCH ×2 (07:41→20:57)
[2021-06-16] MEDS: Metoprolol XL (24 HR) Succ 25 MG TAB.ER.24H PO SCH (07:42)
[2021-06-16] MEDS: *HR* Metoprolol 5 MG/5 ML VIAL IVP PRN ×4 (07:42→21:53)
[2021-06-16] MEDS ORDERED: Iron Sucrose Complex 200 MG in 0.9 % Sodium Chloride 100 ML IVPB ONE (11:00)
[2021-06-16] MEDS ORDERED: Warfarin perPT PO PRN (18:00)
[2021-06-16] MEDS ORDERED: *HR* Warfarin 2.5 MG TABLET PO ONE (18:00)
[2021-06-16] MEDS: Ondansetron 4 MG/2 ML VIAL IVP PRN (18:04)
[2021-06-16] MEDS: *HR* OxyCODONE Immed Rel 5 MG TABLET PO PRN (19:35)
[2021-06-17] MEDS ORDERED: *HR* LORazepam 2 MG/ML VIAL IVP ONE ×2 (00:15→14:56)
[2021-06-17] MEDS: *HR* Metoprolol 5 MG/5 ML VIAL IVP PRN (06:08)
[2021-06-17] MEDS: *HR* Heparin 5,000 UNIT/ML VIAL SQ SCH ×2 (06:08→17:39)
[2021-06-17 06:31] LABS: Basophils % 0.3 %; Eosinophils # 0.1 K/mcL (0.0-0.6); Eosinophils % 2.1 %; Hematocrit 38.7 % (37.5-50.1); Hemoglobin 11.5 g/dL (12.9-16.9); Immature Granulocytes % 0.2 % (0-4); Lymphocytes # 1.4 K/mcL (0.6-4.6); Mean Corpuscular HGB Conc 29.7 g/dL (31.6-35.5); Mean Corpuscular Hemoglobin 29.6 pg (28.0-33.3); Mean Corpuscular Volume 99.7 fL (83.0-100.0); Mean Platelet Volume 9.1 fL (9.4-12.4); Monocytes # 0.7 K/mcL (0.0-1.3); Monocytes % 11.2 %; Neutrophils # 4.1 K/mcL (1.6-8.9); Platelet Count 154 K/mcL (140-400); Red Blood Count 3.88 M/mcL (4.19-5.50); Red Cell Distribution Width 16.2 % (11.5-14.5); Segmented Neutrophils % 64.2 %; White Blood Count 6.3 K/mcL (4.3-11.1)
[2021-06-17 06:34] LABS: VBG HCO3 32 mEq/L (21-27); VBG PCO2 60 mmHg (41-51); VBG PH 7.33 pH Units (7.32-7.42); VBG PO2 205 mmHg (25-50)
[2021-06-17 06:43] LABS: INR 1.7; Prothrombin Time 18.9 Seconds (9.4-12.1)
[2021-06-17 06:47] LABS: Calcium 9.8 mg/dL (8.6-10.3); Magnesium 1.9 mg/dL (1.6-2.6); Potassium 4.7 mEq/L (3.5-5.1)
[2021-06-17] MEDS: Cholecalciferol (D-3) 1,000 UNIT (25MCG) TABLET PO SCH (08:28)
[2021-06-17] MEDS: Sucralfate 1 GM TABLET PO SCH ×4 (08:29→20:33)
[2021-06-17] MEDS: allopurinoL 100 MG TABLET PO SCH (08:29)
[2021-06-17] MEDS: Aspirin Enteric Coated 81 MG Tablet PO SCH (08:29)
[2021-06-17] MEDS: Vitamin E 200 UNIT (90MG) CAPSULE PO SCH (08:29)
[2021-06-17] MEDS: Lactulose Oral Soln 20 GM/30 ML UDC PO SCH ×2 (08:29→20:33)
[2021-06-17] MEDS: Vitamin B Complex/Vit C/Vit E 1 EACH TABLET PO SCH (08:29)
[2021-06-17] MEDS: Albumin 25% 25gram/100mL 25 GM/100 ML IV.SOLN IVPB SCH ×2 (08:30→15:45)
[2021-06-17] MEDS: SODIUM ZIRCONIUM CYCLOSILICATE 5 GM POWD.PACK PO SCH (08:30)
[2021-06-17] MEDS: Metoprolol XL (24 HR) Succ 25 MG TAB.ER.24H PO SCH ×2 (08:30→20:33)
[2021-06-17] MEDS: Ondansetron 4 MG/2 ML VIAL IVP PRN ×2 (10:01→20:33)
[2021-06-17] MEDS ORDERED: Levalbuterol Neb 1.25 MG/3 ML ONE (10:47)
[2021-06-17] MEDS: Levalbuterol Neb 1.25 MG/3 ML IH SCH ×3 (10:49→21:49)
[2021-06-17 13:16] LABS: Adenovirus Not Detected (Not Detect); Bordetella Pertussis Not Detected (Not Detect); Chlamydophila pneumoniae Not Detected (Not Detect); Coronavirus 229E Not Detected (Not Detect); Coronavirus HKU1 Not Detected (Not Detect); Coronavirus NL63 Not Detected (Not Detect); Coronavirus OC43 Not Detected (Not Detect); Human Metapneumovirus Not Detected (Not Detect); Human Rhinovirus/Enterovirus Not Detected (Not Detect); Influenza A Subtype 2009 H1 Not Detected (Not Detect); Influenza B Not Detected (Not Detect); Mycoplasma pneumoniae Not Detected (Not Detect); Parainfluenza Virus 1 Not Detected (Not Detect); Parainfluenza Virus 2 Not Detected (Not Detect); Parainfluenza Virus 3 Not Detected (Not Detect); Parainfluenza Virus 4 Not Detected (Not Detect); Respiratory Syncytial Virus Not Detected (Not Detect); SARS-CoV-2 Not Detected (Not Detect)
[2021-06-17] MEDS ORDERED: Amiodarone Premix 360 MG/200 ML BAG IVC ONE (13:17)
[2021-06-17] MEDS ORDERED: Amiodarone Premix 150 MG/100 ML BAG IVPB ONE (13:17)
[2021-06-17] MEDS ORDERED: Amiodarone Premix 360 MG/200 ML BAG IVC SCH (19:17)
[2021-06-17] MEDS: *HR* Warfarin 7.5 MG TABLET PO ONE (19:23)
[2021-06-18] MEDS: Albumin 25% 25gram/100mL 25 GM/100 ML IV.SOLN IVPB SCH ×3 (00:13→15:19)
[2021-06-18 01:28] LABS: VBG HCO3 32 mEq/L (21-27); VBG PCO2 87 mmHg (41-51); VBG PH 7.17 pH Units (7.32-7.42); VBG PO2 170 mmHg (25-50)
[2021-06-18 01:29] LABS: Basophils % 0.5 %; Eosinophils # 0.1 K/mcL (0.0-0.6); Eosinophils % 1.7 %; Hematocrit 36.2 % (37.5-50.1); Hemoglobin 10.7 g/dL (12.9-16.9); Immature Granulocytes % 0.3 % (0-4); Lymphocytes # 1.4 K/mcL (0.6-4.6); Lymphocytes % 22.5 %; Mean Corpuscular HGB Conc 29.6 g/dL (31.6-35.5); Mean Corpuscular Hemoglobin 30.3 pg (28.0-33.3); Mean Corpuscular Volume 102.5 fL (83.0-100.0); Mean Platelet Volume 9.4 fL (9.4-12.4); Monocytes # 0.7 K/mcL (0.0-1.3); Neutrophils # 3.8 K/mcL (1.6-8.9); Platelet Count 139 K/mcL (140-400); Red Blood Count 3.53 M/mcL (4.19-5.50); Red Cell Distribution Width 16.1 % (11.5-14.5)
[2021-06-18 01:35] LABS: INR 1.6; Prothrombin Time 18.2 Seconds (9.4-12.1)
[2021-06-18 01:48] LABS: Calcium 10.2 mg/dL (8.6-10.3); Magnesium 1.8 mg/dL (1.6-2.6); Potassium 4.6 mEq/L (3.5-5.1)
[2021-06-18] MEDS: Levalbuterol Neb 1.25 MG/3 ML IH SCH ×4 (03:49→22:33)
[2021-06-18] MEDS: *HR* Heparin 5,000 UNIT/ML VIAL SQ SCH ×2 (06:10→18:55)
[2021-06-18] MEDS: allopurinoL 100 MG TABLET PO SCH (08:09)
[2021-06-18] MEDS: Sucralfate 1 GM TABLET PO SCH ×4 (08:09→20:34)
[2021-06-18] MEDS: Metoprolol XL (24 HR) Succ 25 MG TAB.ER.24H PO SCH ×2 (08:09→20:34)
[2021-06-18] MEDS: Vitamin B Complex/Vit C/Vit E 1 EACH TABLET PO SCH (08:09)
[2021-06-18] MEDS: Aspirin Enteric Coated 81 MG Tablet PO SCH (08:09)
[2021-06-18] MEDS: Cholecalciferol (D-3) 1,000 UNIT (25MCG) TABLET PO SCH (08:10)
[2021-06-18] MEDS: Lactulose Oral Soln 20 GM/30 ML UDC PO SCH ×2 (08:10→20:35)
[2021-06-18] MEDS: Vitamin E 200 UNIT (90MG) CAPSULE PO SCH (08:10)
[2021-06-18 10:20] LABS: VBG HCO3 35 mEq/L (21-27); VBG PCO2 80 mmHg (41-51); VBG PH 7.25 pH Units (7.32-7.42); VBG PO2 185 mmHg (25-50)
[2021-06-18] MEDS ORDERED: Furosemide 40 MG/4 ML VIAL IVP ONE (10:46)
[2021-06-18] MEDS: *HR* Amiodarone 200 MG TABLET PO SCH ×2 (11:11→20:34)
[2021-06-18] MEDS: *HR* OxyCODONE Immed Rel 5 MG TABLET PO PRN (15:20)
[2021-06-18] MEDS ORDERED: *HR* Warfarin 7.5 MG TABLET PO ONE (18:00)
[2021-06-18] MEDS: Ondansetron 4 MG/2 ML VIAL IVP PRN (20:30)
[2021-06-18] MEDS: *HR* Warfarin 7.5 MG TABLET PO ONE (20:31)
[2021-06-19] MEDS: *HR* OxyCODONE Immed Rel 5 MG TABLET PO PRN ×2 (01:58→07:52)
[2021-06-19] MEDS: Levalbuterol Neb 1.25 MG/3 ML IH SCH ×4 (04:26→21:50)
[2021-06-19] MEDS: *HR* Heparin 5,000 UNIT/ML VIAL SQ SCH ×2 (05:41→17:16)
[2021-06-19 06:06] LABS: Red Cell Distribution Width 15.9 % (11.5-14.5)
[2021-06-19 06:08] LABS: Hematocrit 35.6 % (37.5-50.1); Hemoglobin 10.4 g/dL (12.9-16.9); Mean Corpuscular HGB Conc 29.2 g/dL (31.6-35.5); Mean Corpuscular Hemoglobin 29.5 pg (28.0-33.3); Mean Corpuscular Volume 101.1 fL (83.0-100.0); Mean Platelet Volume 9.6 fL (9.4-12.4); Platelet Count 134 K/mcL (140-400); Red Blood Count 3.52 M/mcL (4.19-5.50); White Blood Count 5.7 K/mcL (4.3-11.1)
[2021-06-19 06:29] LABS: Calcium 9.9 mg/dL (8.6-10.3); Potassium 4.5 mEq/L (3.5-5.1)
[2021-06-19] MEDS: allopurinoL 100 MG TABLET PO SCH (07:51)
[2021-06-19] MEDS: Sucralfate 1 GM TABLET PO SCH ×4 (07:51→19:53)
[2021-06-19] MEDS: Metoprolol XL (24 HR) Succ 25 MG TAB.ER.24H PO SCH ×2 (07:51→19:52)
[2021-06-19] MEDS: Aspirin Enteric Coated 81 MG Tablet PO SCH (07:52)
[2021-06-19] MEDS: Vitamin E 200 UNIT (90MG) CAPSULE PO SCH (07:52)
[2021-06-19] MEDS: *HR* Amiodarone 200 MG TABLET PO SCH ×2 (07:52→19:52)
[2021-06-19] MEDS: Cholecalciferol (D-3) 1,000 UNIT (25MCG) TABLET PO SCH (07:52)
[2021-06-19] MEDS: Vitamin B Complex/Vit C/Vit E 1 EACH TABLET PO SCH (07:52)
[2021-06-19] MEDS: Lactulose Oral Soln 20 GM/30 ML UDC PO SCH ×2 (07:53→19:53)
[2021-06-19 10:27] LABS: VBG HCO3 38 mEq/L (21-27); VBG PCO2 91 mmHg (41-51); VBG PH 7.22 pH Units (7.32-7.42); VBG PO2 63 mmHg (25-50)
[2021-06-19 10:36] LABS: INR 1.6; Prothrombin Time 18.6 Seconds (9.4-12.1)
[2021-06-19] MEDS ORDERED: Furosemide 40 MG/4 ML VIAL IVP SCH (11:30)
[2021-06-19] MEDS: Furosemide 40 MG TABLET PO SCH (13:05)
[2021-06-19 17:48] LABS: VBG HCO3 39 mEq/L (21-27); VBG PCO2 97 mmHg (41-51); VBG PH 7.21 pH Units (7.32-7.42); VBG PO2 43 mmHg (25-50)
[2021-06-19 17:53] LABS: Potassium 4.6 mEq/L (3.5-5.1)
[2021-06-19] MEDS ORDERED: *HR* Warfarin 7.5 MG TABLET PO ONE (18:00)
[2021-06-20] MEDS: *HR* OxyCODONE Immed Rel 5 MG TABLET PO PRN (03:25)
[2021-06-20 03:49] LABS: Hemoglobin 10.3 g/dL (12.9-16.9); Mean Platelet Volume 9.7 fL (9.4-12.4); Red Cell Distribution Width 15.9 % (11.5-14.5)
[2021-06-20] MEDS: Levalbuterol Neb 1.25 MG/3 ML IH SCH ×4 (03:49→22:57)
[2021-06-20 03:50] LABS: Hematocrit 34.4 % (37.5-50.1); Mean Corpuscular HGB Conc 29.9 g/dL (31.6-35.5); Mean Corpuscular Hemoglobin 30.4 pg (28.0-33.3); Mean Corpuscular Volume 101.5 fL (83.0-100.0); Platelet Count 138 K/mcL (140-400); Red Blood Count 3.39 M/mcL (4.19-5.50)
[2021-06-20 03:53] LABS: VBG HCO3 36 mEq/L (21-27); VBG PCO2 81 mmHg (41-51); VBG PH 7.26 pH Units (7.32-7.42); VBG PO2 86 mmHg (25-50)
[2021-06-20 03:57] LABS: INR 1.9; Prothrombin Time 21.3 Seconds (9.4-12.1)
[2021-06-20 04:11] LABS: Calcium 9.9 mg/dL (8.6-10.3); Potassium 4.6 mEq/L (3.5-5.1)
[2021-06-20] MEDS: *HR* Heparin 5,000 UNIT/ML VIAL SQ SCH ×2 (05:31→18:07)
[2021-06-20] MEDS: Cholecalciferol (D-3) 1,000 UNIT (25MCG) TABLET PO SCH (07:43)
[2021-06-20] MEDS: *HR* Amiodarone 200 MG TABLET PO SCH ×2 (07:43→20:57)
[2021-06-20] MEDS: Sucralfate 1 GM TABLET PO SCH ×4 (07:43→20:59)
[2021-06-20] MEDS: Vitamin E 200 UNIT (90MG) CAPSULE PO SCH (07:43)
[2021-06-20] MEDS: Aspirin Enteric Coated 81 MG Tablet PO SCH (07:43)
[2021-06-20] MEDS: Vitamin B Complex/Vit C/Vit E 1 EACH TABLET PO SCH (07:43)
[2021-06-20] MEDS: allopurinoL 100 MG TABLET PO SCH (07:44)
[2021-06-20] MEDS: Lactulose Oral Soln 20 GM/30 ML UDC PO SCH ×2 (07:44→20:57)
[2021-06-20] MEDS: Furosemide 40 MG TABLET PO SCH ×2 (07:44→15:59)
[2021-06-20] MEDS: Metoprolol XL (24 HR) Succ 25 MG TAB.ER.24H PO SCH ×2 (07:44→20:55)
[2021-06-20] MEDS ORDERED: *HR* OxyCODONE Immed Rel 5 MG TABLET PO PRN (14:01)
[2021-06-20] MEDS ORDERED: *HR* Warfarin 4 MG TABLET PO ONE (18:00)
[2021-06-21] MEDS: Levalbuterol Neb 1.25 MG/3 ML IH SCH ×4 (04:43→21:19)
[2021-06-21] MEDS: *HR* Heparin 5,000 UNIT/ML VIAL SQ SCH ×2 (06:06→17:15)
[2021-06-21 06:14] LABS: Hematocrit 33.6 % (37.5-50.1); Hemoglobin 9.8 g/dL (12.9-16.9); Mean Corpuscular HGB Conc 29.2 g/dL (31.6-35.5); Mean Corpuscular Hemoglobin 29.3 pg (28.0-33.3); Mean Corpuscular Volume 100.6 fL (83.0-100.0); Mean Platelet Volume 9.5 fL (9.4-12.4); Platelet Count 134 K/mcL (140-400); Red Blood Count 3.34 M/mcL (4.19-5.50); Red Cell Distribution Width 15.9 % (11.5-14.5); White Blood Count 4.4 K/mcL (4.3-11.1)
[2021-06-21 06:21] LABS: Prothrombin Time 22.6 Seconds (9.4-12.1)
[2021-06-21 06:34] LABS: VBG HCO3 39 mEq/L (21-27); VBG PCO2 81 mmHg (41-51); VBG PH 7.29 pH Units (7.32-7.42); VBG PO2 76 mmHg (25-50)
[2021-06-21 06:37] LABS: Calcium 9.8 mg/dL (8.6-10.3); Potassium 4.2 mEq/L (3.5-5.1)
[2021-06-21] MEDS: allopurinoL 100 MG TABLET PO SCH (09:26)
[2021-06-21] MEDS: Vitamin B Complex/Vit C/Vit E 1 EACH TABLET PO SCH (09:26)
[2021-06-21] MEDS: Aspirin Enteric Coated 81 MG Tablet PO SCH (09:26)
[2021-06-21] MEDS: Lactulose Oral Soln 20 GM/30 ML UDC PO SCH ×3 (09:26→20:51)
[2021-06-21] MEDS: Cholecalciferol (D-3) 1,000 UNIT (25MCG) TABLET PO SCH (09:26)
[2021-06-21] MEDS: Vitamin E 200 UNIT (90MG) CAPSULE PO SCH (09:26)
[2021-06-21] MEDS: Metoprolol XL (24 HR) Succ 25 MG TAB.ER.24H PO SCH ×2 (09:26→20:51)
[2021-06-21] MEDS: *HR* Amiodarone 200 MG TABLET PO SCH ×2 (09:26→20:50)
[2021-06-21] MEDS: Furosemide 40 MG TABLET PO SCH ×2 (09:26→17:15)
[2021-06-21] MEDS: Sucralfate 1 GM TABLET PO SCH ×4 (09:28→20:50)
[2021-06-21] MEDS: Ondansetron 4 MG/2 ML VIAL IVP PRN (15:25)
[2021-06-21] MEDS ORDERED: *HR* Warfarin 4 MG TABLET PO ONE (18:00)
[2021-06-21 20:44] VITALS: TEMP 98.3
[2021-06-22] MEDS: Levalbuterol Neb 1.25 MG/3 ML IH SCH ×3 (04:05→16:04)
[2021-06-22] MEDS: *HR* Heparin 5,000 UNIT/ML VIAL SQ SCH (05:38)
[2021-06-22 05:58] LABS: Hematocrit 34.4 % (37.5-50.1); Hemoglobin 10.3 g/dL (12.9-16.9); Mean Corpuscular HGB Conc 29.9 g/dL (31.6-35.5); Mean Corpuscular Hemoglobin 29.6 pg (28.0-33.3); Mean Corpuscular Volume 98.9 fL (83.0-100.0); Mean Platelet Volume 9.7 fL (9.4-12.4); Platelet Count 143 K/mcL (140-400); Red Blood Count 3.48 M/mcL (4.19-5.50); Red Cell Distribution Width 15.9 % (11.5-14.5); White Blood Count 4.4 K/mcL (4.3-11.1)
[2021-06-22 06:02] LABS: VBG HCO3 36 mEq/L (21-27); VBG PCO2 68 mmHg (41-51); VBG PH 7.33 pH Units (7.32-7.42); VBG PO2 178 mmHg (25-50)
[2021-06-22 06:06] LABS: INR 2.1
[2021-06-22 06:23] LABS: Calcium 9.8 mg/dL (8.6-10.3); Potassium 3.8 mEq/L (3.5-5.1)
[2021-06-22] MEDS: *HR* Amiodarone 200 MG TABLET PO SCH (09:55)
[2021-06-22] MEDS: Vitamin B Complex/Vit C/Vit E 1 EACH TABLET PO SCH (09:55)
[2021-06-22] MEDS: allopurinoL 100 MG TABLET PO SCH (09:55)
[2021-06-22] MEDS: Vitamin E 200 UNIT (90MG) CAPSULE PO SCH (09:55)
[2021-06-22] MEDS: Metoprolol XL (24 HR) Succ 25 MG TAB.ER.24H PO SCH (09:55)
[2021-06-22] MEDS: Aspirin Enteric Coated 81 MG Tablet PO SCH (09:55)
[2021-06-22] MEDS: Lactulose Oral Soln 20 GM/30 ML UDC PO SCH ×2 (09:56→15:20)
[2021-06-22] MEDS: Sucralfate 1 GM TABLET PO SCH ×3 (09:56→15:13)
[2021-06-22] MEDS: Furosemide 40 MG TABLET PO SCH (09:56)
[2021-06-22] MEDS: Cholecalciferol (D-3) 1,000 UNIT (25MCG) TABLET PO SCH (09:56)
[2021-06-22 09:59] VITALS: BP 116/82; PULSE 99
[2021-06-22] MEDS: Ondansetron 4 MG/2 ML VIAL IVP PRN (10:51)
[2021-06-22 16:06] VITALS: O2SAT 98
[2021-06-22 16:27] LABS: Adenovirus Not Detected (Not Detect); Bordetella Pertussis Not Detected (Not Detect); Chlamydophila pneumoniae Not Detected (Not Detect); Coronavirus 229E Not Detected (Not Detect); Coronavirus HKU1 Not Detected (Not Detect); Coronavirus NL63 Not Detected (Not Detect); Coronavirus OC43 Not Detected (Not Detect); Human Metapneumovirus Not Detected (Not Detect); Human Rhinovirus/Enterovirus Not Detected (Not Detect); Influenza A Subtype 2009 H1 Not Detected (Not Detect); Influenza B Not Detected (Not Detect); Mycoplasma pneumoniae Not Detected (Not Detect); Parainfluenza Virus 1 Not Detected (Not Detect); Parainfluenza Virus 2 Not Detected (Not Detect); Parainfluenza Virus 3 Not Detected (Not Detect); Parainfluenza Virus 4 Not Detected (Not Detect); Respiratory Syncytial Virus Not Detected (Not Detect); SARS-CoV-2 Not Detected (Not Detect)
[2021-06-22] MEDS ORDERED: *HR* Warfarin 4 MG TABLET PO ONE (18:00)
[2021-06-28] MEDS ORDERED: *HR* Amiodarone 200 MG TABLET PO SCH (09:00)
== END 2021-06-22 18:28 | disposition other institution (70) | DRG 682 ==
LOC: 2NNU 12:36 → EMEROOARM 12:36 → SUATTDRO 19:28 → 2NNU 20:23 → SUATTDRO 06-13 15:25 → 2NENU 06-19 17:01
PROVIDERS: ADMIT Pharmacist; ATTEND Internal Medicine